=== PATIENT | male | born 1980 | race Hispanic/Latino ===

== ENCOUNTER 2018-04-01 00:18 | Emergency (ER) | payer SELFPAY ==
--- NOTE | 2018-04-01 01:59 | ER ---
Nurse's Notes [facility] Name: Jhonny Pompa Age: 37 yrs Sex: Male : 1980 Arrival Date: 04/01/2018 Time: 00:20 Bed 18 Private MD: Gabriel Noriega T Diagnosis: Acute upper respiratory infection, unspecified Presentation: 04/01 00:29 Presenting complaint: Patient states: Pt reports he has been having a sore throat, ea fever, congestion and productive cough for about 1 week. Transition of care: patient was not received from another setting of care. Onset of symptoms was April 01, 2018. Risk Assessment: Do you want to hurt yourself or someone else? Patient reports no desire to harm self or others. Initial Sepsis Screen: Does the patient meet any 2 criteria? No. Patient's initial sepsis screen is negative. Does the patient have a suspected source of infection? Yes: Productive cough/pneumonia. Care prior to arrival: None. 00:29 Method Of Arrival: Ambulatory ea 00:29 Acuity: DONNELL 4 ea Triage Assessment: 00:37 General: Appears in no apparent distress. Behavior is calm, cooperative, appropriate ea for age. Pain: Denies pain. Neuro: Level of Consciousness is awake, alert, obeys commands, Oriented to person, place, time, situation. Respiratory: Airway is patent Respiratory effort is even, unlabored, Respiratory pattern is regular, symmetrical. Derm: Skin is pink, warm \T\ dry. Historical: - Allergies: 00:33 Tylenol; ea 00:33 meloxicam; ea - Home Meds: 00:33 Valium Oral [Active]; Tramadol Oral [Active]; Cymbalta Oral [Active]; ea - PMHx: 00:33 Anxiety; Depression; ea - PSHx: 00:33 None; ea - Immunization history:: Adult Immunizations up to date. - Social history:: Smoking status: Patient/guardian denies using tobacco. - Ebola Screening: : No symptoms or risks identified at this time. Screenin:36 Abuse screen: Denies threats or abuse. Nutritional screening: No deficits noted. ea Tuberculosis screening: No symptoms or risk factors identified. Fall Risk None identified. Assessment: 00:40 Reassessment: Patient appears in no apparent distress at this time. No changes from ak1 previously documented assessment. see triage assessment. Respiratory: Airway is patent Breath sounds are clear. EENT: Throat is clear. 01:35 Reassessment: Patient appears in no apparent distress at this time. No changes from ak1 previously documented assessment. Patient and/or family updated on plan of care and expected duration. Pain level reassessed. Patient is alert, oriented x 3, equal unlabored respirations, skin warm/dry/pink. 02:10 Reassessment: Patient appears in no apparent distress at this time. No changes from ak1 previously documented assessment. Patient and/or family updated on plan of care and expected duration. Pain level reassessed. Patient is alert, oriented x 3, equal unlabored respirations, skin warm/dry/pink. Vital Signs: 00:34 BP 122 / 89; Pulse 103; Resp 18; Temp 99(O); Pulse Ox 95% ; Weight 65.77 kg; Height 6 ea ft. (182.88 cm); 02:17 BP 127 / 90; Pulse 87; Resp 16; Temp 98.9; Pulse Ox 96% on R/A; Pain 0/10; ak1 00:34 Body Mass Index 19.67 (65.77 kg, 182.88 cm) ea ED Course: 00:20 Patient arrived in ED. es 00:21 Gabriel Noriega MD is Private Physician. es 00:22 [facility]C [facility] kb 00:22 Gino Kate MD is Attending Physician. kb 00:29 Sera Bailey, APZ is Primary Nurse. ea 00:32 Triage completed. ea 00:36 Patient has correct armband on for positive identification. Bed in low position. Call ea light in reach. 00:38 Arm band placed on right wrist. Patient placed in an exam room, on a stretcher, on ea pulse oximetry. 00:58 Patient moved to radiology via wheelchair. kw 00:58 X-ray completed. Patient tolerated procedure well. kw 00:59 Patient moved back from radiology. kw 00:59 XRAY Chest Pa And Lat (2 Views) In Process Unspecified. EDMS 02:12 No provider procedures requiring assistance completed. Patient did not have IV access ak1 during this emergency room visit. Administered Medications: No medications were administered Outcome: 01:59 Discharge ordered by . kb 02:12 Discharged to home ambulatory, with family. ak1 02:12 Condition: good 02:12 Discharge instructions given to patient, family, Instructed on discharge instructions, follow up and referral plans. Demonstrated understanding of instructions, follow-up care. 02:17 Patient left the ED. ak1 Signatures: Dispatcher [employer] EDRin James, NARROW GAUGE BRAKEMAN-C NARROW GAUGE BRAKEMAN-Ckb Dot Pearson Kimberlee kw Krenek, Amber RN RN ak1 Sera Bailey RN RN roberto carlos Corrections: (The following items were deleted from the chart) 02:14 02:12 EENT: Throat is clear ak1 ak1 02:14 02:12 Respiratory: Airway is patent Breath sounds are clear ak1 ak1 02:14 02:13 Reassessment: Patient appears in no apparent distress at this time. No changes ak1 from previously documented assessment. see triage assessment. ak1
--- NOTE | 2018-04-01 01:59 | EDPHYS ---
Physician Documentation [facility] Name: Jhonny Pompa Age: 37 yrs Sex: Male : 1980 Arrival Date: 04/01/2018 Time: 00:20 Bed 18 Private MD: Gabriel Noriega T ED Physician Gino Kate HPI: 04/01 01:14 This 37 yrs old Male presents to ER via Ambulatory with complaints of Chest kb Congestion, Sore Throat, Cough. 01:14 The patient or guardian reports cough, that is intermittent, described as moderate, kb with no sputum, flu symptoms. Onset: The symptoms/episode began/occurred last week. Severity of symptoms: At their worst the symptoms were moderate, in the emergency department the symptoms are unchanged. Modifying factors: The symptoms are alleviated by nothing, the symptoms are aggravated by nothing. Associated signs and symptoms: Pertinent positives: earache, fever, rhinorrhea, sore throat, Pertinent negatives: chest pain, diarrhea, nausea, vomiting. The patient has not experienced similar symptoms in the past. The patient has not recently seen a physician. Historical: - Allergies: 00:33 Tylenol; ea 00:33 meloxicam; ea - Home Meds: 00:33 Valium Oral [Active]; Tramadol Oral [Active]; Cymbalta Oral [Active]; ea - PMHx: 00:33 Anxiety; Depression; ea - PSHx: 00:33 None; ea - Immunization history:: Adult Immunizations up to date. - Social history:: Smoking status: Patient/guardian denies using tobacco. - Ebola Screening: : No symptoms or risks identified at this time. ROS: 01:13 Cardiovascular: Negative for chest pain, palpitations, and edema, Abdomen/GI: Negative kb for abdominal pain, nausea, vomiting, diarrhea, and constipation, Back: Negative for injury and pain, MS/Extremity: Negative for injury and deformity, Skin: Negative for injury, rash, and discoloration, Neuro: Negative for headache, weakness, numbness, tingling, and seizure. 01:13 Constitutional: Positive for body aches, chills, fever, malaise, Negative for fatigue, poor PO intake, weight loss. 01:13 ENT: Positive for rhinorrhea, sinus congestion, sore throat. 01:13 Respiratory: Positive for cough, Negative for dyspnea on exertion, hemoptysis, orthopnea, pleurisy, shortness of breath, sputum production, wheezing. Exam: 01:14 Constitutional: This is a well developed, well nourished patient who is awake, alert, kb and in no acute distress. Head/Face: Normocephalic, atraumatic. ENT: Nares patent. No nasal discharge, no septal abnormalities noted. Tympanic membranes are normal and external auditory canals are clear. Oropharynx with no redness, swelling, or masses, exudates, or evidence of obstruction, uvula midline. Mucous membranes moist. Neck: Trachea midline, no thyromegaly or masses palpated, and no cervical lymphadenopathy. Supple, full range of motion without nuchal rigidity, or vertebral point tenderness. No Meningismus. Chest/axilla: Normal chest wall appearance and motion. Nontender with no deformity. No lesions are appreciated. Cardiovascular: Regular rate and rhythm with a normal S1 and S2. No gallops, murmurs, or rubs. Normal PMI, no JVD. No pulse deficits. Respiratory: Lungs have equal breath sounds bilaterally, clear to auscultation and percussion. No rales, rhonchi or wheezes noted. No increased work of breathing, no retractions or nasal flaring. Abdomen/GI: Soft, non-tender, with normal bowel sounds. No distension or tympany. No guarding or rebound. No evidence of tenderness throughout. Skin: Warm, dry with normal turgor. Normal color with no rashes, no lesions, and no evidence of cellulitis. MS/ Extremity: Pulses equal, no cyanosis. Neurovascular intact. Full, normal range of motion. Neuro: Awake and alert, GCS 15, oriented to person, place, time, and situation. Cranial nerves II-XII grossly intact. Motor strength 5/5 in all extremities. Sensory grossly intact. Cerebellar exam normal. Normal gait. Vital Signs: 00:34 BP 122 / 89; Pulse 103; Resp 18; Temp 99(O); Pulse Ox 95% ; Weight 65.77 kg; Height 6 ea ft. (182.88 cm); 02:17 BP 127 / 90; Pulse 87; Resp 16; Temp 98.9; Pulse Ox 96% on R/A; Pain 0/10; ak1 00:34 Body Mass Index 19.67 (65.77 kg, 182.88 cm) ea MDM: 00:25 Patient medically screened. kb 01:13 Data reviewed: vital signs, nurses notes. Data interpreted: Pulse oximetry: on room air kb is 95 %. Interpretation: normal. 01:59 Counseling: I had a detailed discussion with the patient and/or guardian regarding: the kb historical points, exam findings, and any diagnostic results supporting the discharge/admit diagnosis, lab results, radiology results, the need for outpatient follow up, a family practitioner, to return to the emergency department if symptoms worsen or persist or if there are any questions or concerns that arise at home. 04/01 00:31 Order name: Flu; Complete Time: 01:57 kb 04/01 00:31 Order name: Strep; Complete Time: 01:56 kb 04/01 00:39 Order name: XRAY Chest Pa And Lat (2 Views) ak1 04/01 01:58 Order name: Throat Culture EDMS Administered Medications: No medications were administered Disposition: 07:49 Co-signature as Attending Physician, Gino Kate MD I agree with the assessment and [facility] plan of care. Disposition: 04/01/18 01:59 Discharged to Home. Impression: Acute upper respiratory infection, unspecified. - Condition is Stable. - Discharge Instructions: Upper Respiratory Infection, Adult, [id number]. - Medication Reconciliation Form, Thank You Letter, Antibiotic Education, Prescription Opioid Use form. - Follow up: Private Physician; When: 2 - 3 days; Reason: Recheck today's complaints, Continuance of care, Re-evaluation by your physician. Follow up: Emergency Department; When: As needed; Reason: Worsening of condition. Signatures: Dispatcher [employer] EDLA Rin Greenberg, Gino Roth MD MD cha Krenek, Amber, RN RN ak1 Sera Baiely RN RN ea Corrections: (The following items were deleted from the chart) 02:17 01:59 04/01/2018 01:59 Discharged to Home. Impression: Acute upper respiratory ak1 infection, unspecified. Condition is Stable. Forms are Medication Reconciliation Form, Thank You Letter, Antibiotic Education, Prescription Opioid Use. Follow up: Private Physician; When: 2 - 3 days; Reason: Recheck today's complaints, Continuance of care, Re-evaluation by your physician. Follow up: Emergency Department; When: As needed; Reason: Worsening of condition. kb
--- NOTE | 2018-04-01 06:10 | RAD REPORT ---
EXAM DESCRIPTION: RAD - Chest Pa And Lat (2 Views) - 04/01/2018 1:01 am CLINICAL HISTORY: Fever, congestion, cough COMPARISON: May 2016 TECHNIQUE: PA and lateral views of the chest were obtained. FINDINGS: The lungs are clear of focal infiltrate, failure or mass. Hilar regions are similar to com parison. Patient has a baseline prominence of the interstitial markings. Heart size is normal and c entral vasculature is within normal limits. No pleural effusion or pneumothorax seen. No acute bony finding noted. No aortic abnormality. IMPRESSION: No acute cardiopulmonary process. No significant change from comparison.
== END 2018-04-01 02:17 | disposition home or self-care (01) ==
LOC: ER 00:18
DX: J06.9 Acute upper respiratory infection, unspecified (principal); F41.9 Anxiety disorder, unspecified; F32.9 Major depressive disorder, single episode, unspecified; Z88.6 Allergy status to analgesic agent; Z88.8 Allergy status to other drugs, medicaments and biological substances
CPT/HCPCS: 71046; 87070; 87081; 87804; 99283

== ENCOUNTER 2021-03-02 14:57 | Emergency (ER) | payer SELFPAY ==
[2021-03-02] MEDS ORDERED: LIDOCAINE 4% PATCH ONE (17:50)
--- NOTE | 2021-03-02 18:22 | RAD REPORT ---
EXAM DESCRIPTION: RAD - Lumbar Spine 3 Views - 03/02/2021 6:04 pm CLINICAL HISTORY: PAIN COMPARISON: LUMBAR SPINE 3 VIEWS dated 03/06/2015 FINDINGS: No acute fracture. No malalignment. No significant focal degenerative changes. IMPRESSION: No acute osseous abnormality involving the lumbar spine.
--- NOTE | 2021-03-02 18:23 | RAD REPORT ---
EXAM DESCRIPTION: RAD - Hip Right 2 View - 03/02/2021 6:04 pm CLINICAL HISTORY: PAIN COMPARISON: No comparisons FINDINGS: No acute fracture. No malalignment. Mild right acetabular degenerative changes. IMPRESSION: No acute osseous abnormality involving the right hip.
--- NOTE | 2021-03-02 18:41 | EDPHYS ---
Physician Documentation [facility] Name: Jhonny Pompa Age: 40 yrs Sex: Male : 1980 Arrival Date: 03/02/2021 Time: 14:59 Bed 10 Private MD: ED Physician Joe Parekh HPI: 03/02 18:00 This 40 yrs old Male presents to ER via Ambulatory with complaints of Hip Pain.cp 18:00 The patient or guardian reports pain. cp 18:00 The complaints affect the right hip and right buttock and right leg. Onset: The cp symptoms/episode began/occurred for years. Associated signs and symptoms: Pertinent negatives: abdominal pain, chest pain, dysuria, fever, incontinence, weakness, saddle anesthesia. Severity of symptoms: in the emergency department the symptoms are unchanged, despite home interventions. Patient reports pain to right buttock that radiates to right hip and right leg for years. Patient prescribed pain medications but reports they do not control pain and that he ran out of meds. Patient denies injury. Historical: - Allergies: 15:14 meloxicam; ss 15:14 Tylenol; ss - PMHx: 15:14 Anxiety; Depression; ss - Immunization history:: Client reports having NOT received the Covid vaccine. - Social history:: Smoking status: Patient denies any tobacco usage or history of. ROS: 18:05 Constitutional: Negative for body aches, chills, fever, poor PO intake. cp 18:05 Eyes: Negative for injury, pain, redness, and discharge. cp 18:05 Neck: Negative for pain with movement, pain at rest, stiffness. 18:05 Cardiovascular: Negative for chest pain. 18:05 Respiratory: Negative for cough, shortness of breath, wheezing. 18:05 Abdomen/GI: Negative for abdominal pain, nausea, vomiting, and diarrhea, constipation, bowel incontinence. 18:05 Back: Negative for pain at rest, pain with movement. 18:05 : Negative for urinary symptoms, difficulty urinating, bladder incontinence, testicular pain 18:05 MS/extremity: Positive for pain, of the right leg and right hip, Negative for injury or acute deformity, decreased range of motion, paresthesias. 18:05 Neuro: Negative for numbness, weakness. 18:05 All other systems are negative. Exam: 18:10 Constitutional: The patient appears in no acute distress, alert, awake, non-toxic, well cp developed, well nourished. 18:10 Head/Face: Normocephalic, atraumatic. cp 18:10 Neck: ROM/movement: is normal, is supple, without pain, no range of motions limitations. 18:10 Chest/axilla: Inspection: normal. 18:10 Cardiovascular: Rate: tachycardic. 18:10 Respiratory: the patient does not display signs of respiratory distress, Respirations: normal, no use of accessory muscles, no retractions, labored breathing, is not present. 18:10 Abdomen/GI: Inspection: abdomen appears normal, Palpation: abdomen is soft and non-tender, in all quadrants. 18:10 Back: vertebral tenderness, is not appreciated, Straight leg raises: of both lower extremities does not illicit pain. 18:10 Musculoskeletal/extremity: Extremities: grossly normal except: noted in the right buttock and right hip and right leg: pain, There is no evidence of decreased ROM, deformity, swelling, ROM: full active range of motion, in the right leg, Perfusion: the extremity is normally perfused throughout, the right leg Sensation intact. 18:10 Neuro: Motor: moves all fours, strength is normal, Sensation: is normal, Gait: is steady, at a normal pace, without difficulty, Deep tendon reflexes are 2+ (normal) in the right patellar, right Achilles, left patellar and left Achilles. Vital Signs: 15:15 Pulse 105; Resp 16; Temp 98.6(TE); Pulse Ox 100% ; Weight 70.76 kg; Height 6 ft. 0 in. ss (182.88 cm); Pain 8/10; 15:16 BP 126 / 82; ss 15:15 Body Mass Index 21.16 (70.76 kg, 182.88 cm) ss MDM: 17:47 Patient medically screened. cp 18:00 Differential diagnosis: hip fracture, bursitis, strain, DVT, sciatica, bulging disc. cp 18:40 Data reviewed: vital signs, nurses notes, radiologic studies, plain films. cp 03/02 17:47 Order name: XRAY Lumbar Spine (3 Views) cp 03/02 17:47 Order name: XRAY Hip RIGHT 2 view cp Administered Medications: 17:52 Drug: Lidoderm Patch 5 % (700 mg/patch) 1 patches {Note: 4% lido patch available. OK ss per LILA Christian.} Route: Topical; Site: affected area; Disposition Summary: 03/02/21 18:41 Discharge Ordered Location: Home cp Problem: chronic cp Symptoms: have improved cp Condition: Stable cp Diagnosis - Sciatica, right side cp Followup: cp - With: Geronimo Yoder DO - When: 2 - 3 days - Reason: Recheck today's complaints Discharge Instructions: - Discharge Summary Sheet cp - Sciatica cp - Back Exercises cp Forms: - Work release form ss - Medication Reconciliation Form cp - Thank You Letter cp - Antibiotic Education cp - Prescription Opioid Use cp Prescriptions: - Baclofen 10 mg Oral Tablet - take 1 tablet by ORAL route 3 times per day; 20 tablet; Refills: 0, Product cp Selection Permitted - Medrol (Carlitos) 4 mg Oral Tablets, Dose Pack - take 1 tablet by ORAL route as directed - follow package instructions; 1 cp packet; Refills: 0, Product Selection Permitted Addendum: 03/05/2021 11:22 Co-signature as Attending Physician, Joe Parekh MD I agree with the assessment and k dr plan of care. Signatures: Dispatcher [employer] EDJoe Arboleda MD MD kdr Shannon Davies RN RN Gino Osei PA PA cp
--- NOTE | 2021-03-02 18:41 | ER ---
Nurse's Notes [facility] Name: Jhonny Pompa Age: 40 yrs Sex: Male : 1980 Arrival Date: 03/02/2021 Time: 14:59 Bed 10 Private MD: Diagnosis: Sciatica, right side Presentation: 03/02 15:14 Chief complaint: Patient states: R hip pain that began x "a couple years" ago. Pt ss reports that he was given medication by his PCP, but it's not helping now. Coronavirus screen: Client denies travel out of the [place] in the last 14 days. Ebola Screen: Patient denies exposure to infectious person. Patient denies travel to an Ebola-affected area in the 21 days before illness onset. Initial Sepsis Screen: Does the patient meet any 2 criteria? No. Patient's initial sepsis screen is negative. Does the patient have a suspected source of infection? No. Patient's initial sepsis screen is negative. Risk Assessment: Do you want to hurt yourself or someone else? Patient reports no desire to harm self or others. Onset of symptoms is unknown. 15:14 Method Of Arrival: Ambulatory ss 15:14 Acuity: DONNELL 4 ss Historical: - Allergies: 15:14 meloxicam; ss 15:14 Tylenol; ss - PMHx: 15:14 Anxiety; Depression; ss - Immunization history:: Client reports having NOT received the Covid vaccine. - Social history:: Smoking status: Patient denies any tobacco usage or history of. Screenin:15 Abuse screen: Denies threats or abuse. Denies injuries from another. Nutritional ss screening: No deficits noted. Tuberculosis screening: Never had TB. Fall Risk None identified. Assessment: 15:15 General: Appears in no apparent distress. comfortable, Behavior is calm, cooperative. ss Pain: Complains of pain in R hip/ buttock Pain currently is 8 out of 10 on a pain scale. Pain began years ago. Is continuous. Neuro: Level of Consciousness is awake, alert, obeys commands, Oriented to person, place, time, situation. Cardiovascular: Capillary refill < 3 seconds is brisk in bilateral fingers. Respiratory: Airway is patent Respiratory effort is even, unlabored, Respiratory pattern is regular, symmetrical. GI: No signs and/or symptoms were reported involving the gastrointestinal system. EENT: Nares are clear Oral mucosa is moist. Derm: Skin is intact, is healthy with good turgor, Skin is dry, Skin is pink, warm \\T\\ dry. normal. 18:00 Reassessment: Patient appears in no apparent distress at this time. Patient and/or ss family updated on plan of care and expected duration. Pain level reassessed. Patient is alert, oriented x 3, equal unlabored respirations, skin warm/dry/pink. 18:37 Reassessment: Patient appears in no apparent distress at this time. No changes from previously documented assessment. awaiting disposition. Vital Signs: 15:15 Pulse 105; Resp 16; Temp 98.6(TE); Pulse Ox 100% ; Weight 70.76 kg; Height 6 ft. 0 in. ss (182.88 cm); Pain 8/10; 15:16 BP 126 / 82; ss 15:15 Body Mass Index 21.16 (70.76 kg, 182.88 cm) ED Course: 14:59 Patient arrived in ED. am2 15:14 Triage completed. ss 15:15 Arm band placed on right wrist. ss 15:15 Patient has correct armband on for positive identification. Bed in low position. Call ss light in reach. 17:42 Gino Yi PA is PHCP. cp 17:42 Joe Parekh MD is Attending Physician. cp 17:49 Shannon Davies, PAZ is Primary Nurse. ss 18:04 XRAY Lumbar Spine (3 Views) In Process Unspecified. EDMS 18:04 XRAY Hip RIGHT 2 view In Process Unspecified. EDMS 18:40 Geronimo Yoder DO is Referral Physician. cp 18:57 No provider procedures requiring assistance completed. Patient did not have IV access ss during this emergency room visit. Administered Medications: 17:52 Drug: Lidoderm Patch 5 % (700 mg/patch) 1 patches {Note: 4% lido patch available. OK ss per LILA Christian.} Route: Topical; Site: affected area; Outcome: 18:41 Discharge ordered by . cp 18:57 Discharged to home ambulatory. ss 18:57 Condition: good 18:57 Discharge instructions given to patient, Instructed on discharge instructions, follow up and referral plans. medication usage, Demonstrated understanding of instructions, follow-up care, Prescriptions given X 2. 18:57 Patient left the ED. ss Signatures: Dispatcher [employer] Shannon Zuniga RN RN ss Gino Yi PA PA cp Moreno, Amanda am2
[2021-03-02 19:03] VITALS: TEMP 98.6; O2SAT 100
[2021-03-02 19:04] VITALS: BP 126/82
== END 2021-03-02 18:57 | disposition home or self-care (01) ==
LOC: ER 14:57
DX: M54.31 Sciatica, right side (principal); Z88.6 Allergy status to analgesic agent
CPT/HCPCS: 72100; 99283

== ENCOUNTER 2022-04-28 16:11 | Emergency (ER) | payer SELFPAY ==
--- OUTSIDE RECORDS SUMMARY | 2022-04-28 16:15 | XMS REPORT | Continuity of Care Document ---
:1980 Author Organization [facility] t Address [address] [place] [address] Care Team Providers Name Role Phone Gabriel Noriega Primary Care Physician KANDY DELAROSA Attending Clinician Unavailable SANJUANITA HERNANDEZ Attending Clinician Unavailable Sanjuanita Musa Attending Clinician June Marie Attending Clinician Doctor Unassigned, [place] Attending Clinician Unavailable Payers Payer Name Policy Type Policy Number Effective Date Expiration Date Deshawn kim [facility] [id number] 2014 2021 SELECT 00:00:00 00:00:00 Problems Condition Condition Condition Status Onset Resolution Last Treating Co mments Source Name Details Category Date Date Treatment Clinician Date No known No known Disease Unive rs active active ity of problems problems [place] [facility] Allergies, Adverse Reactions, Alerts Allergy Allergy Status Severity Reaction(s) Onset Inactive Treating Comm ents Source Name Type Date Date Clinician Acetamin Propensi Active Unknown - Burning Un dmitry ophen ty to See comments 4-08 in ity of adverse 00:00: stomach [place] reaction 00 Medical s Branch Meloxica Propensi Active Unknown - burnig in Univers m ty to See comments 4-08 stomach ity of adverse 00:00: [place] reaction 00 Medical s Branch Social History Social Habit Start Date Stop Date Quantity Comments Source Exposure to Not sure [facility] SARS-CoV-2 (event) Medica l Branch Tobacco use and 2021-06-29 2021-06-29 Never used [facility] exposure 00:00:00 00:00:00 [facility] Sex Assigned At [birth year] [facility] 00:00:00 00:00:00 Medical Dawn Smoking Status Start Date Stop Date Source Never smoker [facility] Medications Ordered Filled Start Stop Current Ordering Indication Dosage Frequency Signature Comments Components Source Medication Medication Date Date Medication? Clinician (SIG) Name Name DULoxetine Yes 20mg Take 20 mg U nivers 20 mg 08 by mouth ity of capsule 12:36: daily. [place] 48 Medical Branch amoxicillin 2021- No [id number] 1{tbl} Take 1 Univers -clavulanat 06-29 tablet by it y of e 00:00: 04:59 mouth 2 [place] (AUGMENTIN) 00 :00 (two) Medical 875-125 mg times Branch per tablet daily for 10 days. Vital Signs Vital Name Observation Time Observation Value Comments Source Systolic blood 2021-06-29 17:11:00 129 mm[Hg] [facility]iver [facility] Diastolic blood 2021-06-29 17:11:00 89 mm[Hg] [facility] Heart rate 2021-06-29 17:11:00 97 /min [facility] Body temperature 2021-06-29 17:11:00 36.78 Jaimee [facility] Respiratory rate 2021-06-29 17:11:00 17 /min [facility] Body height 2021-06-29 17:11:00 182.9 cm [facility] Body weight 2021-06-29 17:11:00 66.877 kg [facility] BMI 2021-06-29 17:11:00 20.00 kg/m2 [facility] Oxygen saturation in 2021-06-29 17:11:00 98 /min [facility] Arterial blood by [facility] Pulse oximetry Dawn Procedures Procedure Date / Time Performed Performing Clinician Anel mike POCT URINALYSIS 2021-06-29 17:20:00 Sanjuanita Hernandez [facility] Encounters Start End Encounter Admission Attending Care Care Encounter Source Date/Time Date/Time Type Type Clinicians Facility Department ID 2022-04-26 2022-04-26 Outpatient SFA ALFREDO [id number] [place] 13:16:28 13:16:28 [id number] Zen 2021-07-06 2021-07-06 Outpatient Whitney DELAROSA [facility] [id number] Univers 13:00:00 13:00:00 KANDY rojas of [facility] 2021-06-29 2021-06-29 Outpatient R DAVID [facility] [id number] Univers 13:30:00 13:30:00 SANJUANITA rojas o f [facility] 2021-06-29 2021-06-29 Urgent Sanjuanita Hernandez [facility] [id number] Univers 12:40:00 12:58:01 Care Octavio [facility] [id number] ity of [place] [id number] Coleman as CHRISTIANO?BLEA [phone] Mn dical [address] MEDICAL OFFICE BUILDING 2021-06-29 2021-06-29 Orders Doctor BELTRAN [id number] Univers 00:00:00 00:00:00 Only Unassigned, ISSA [id number] ity of [place] [facility] [id number] [place] as [phone] [address] Results Test Description Test Time Test Comments Results Result Comments Source POCT URINALYSIS W SPECIFIC GRAVITY 2021-06-29 17:26:00 Test Item Value Reference Range Interpretation Comme nts POCT U SP GRAV (test code = 1.015 mg/dl 1.005-1.025 3255) POCT PH U (test code = 3254) 6 mg/dl 5-8 POCT U LEUK EST (test code = neg Negative - Negative 3263) POCT U NIT (test code = 3262) neg Negative - Negative POCT U PROT (test code = 3259) neg Negative - Negative POCT U GLU (test code = 3256) neg Negative - Negative POCT U KETONE (test code = neg Negative - Negative 3258) POCT U UROBILI (test code = norm 0.2-1 3260) POCT U BILI (test code = 3261) neg Negative - Negative POCT U BLD (test code = 3257) neg Negative - Negative POCT U COLOR (test code = 3266) dark yellow POCT U APPEAR (test code = clear 3267) MINGO (test code = MINGO) accurate development and interpretation of all internal controls Lab Interpretation (test code = Normal 32936-8) [facility]
[2022-04-28] MEDS ORDERED: ONDANSETRON 4 MG/2 ML VIAL ONE (18:04)
[2022-04-28] MEDS ORDERED: FENTANYL CITR 100 MCG/2 ML ONE (18:04)
[2022-04-28 18:05] LABS: Hematocrit 41.9 % (39.6-49.0)
[2022-04-28 18:12] LABS: Lymphocytes % 35.1 % (15.3-44.8); MCV 85.8 fL (80-100); MPV 6.6 fL (7.6-11.3); RBC Red Blood Cell Count 4.88 M/uL (4.33-5.43)
[2022-04-28 18:22] LABS: Albumin 3.7 g/dL (3.4-5.0); Bilirubin Total 0.2 mg/dL (0.2-1.0); Potassium 3.7 mmol/L (3.5-5.1); Protein, Total 8.3 g/dL (6.4-8.2)
--- NOTE | 2022-04-28 18:29 | RAD REPORT ---
EXAM DESCRIPTION: CT - Stone Protocol - 04/28/2022 6:09 pm CLINICAL HISTORY: Abdominal pain. Left flank pain COMPARISON: 2015 TECHNIQUE: Computed axial tomography of the abdomen pelvis was obtained without oral or IV contrast. Lack of IV and oral contrast limits evaluation of solid organs, appendix, bowel, and vessels. Neville l reformatted images were obtained and reviewed. All CT scans are performed using dose optimization technique as appropriate and may include automated exposure control or mA/KV adjustment according to patient size. FINDINGS: Two small left renal calculi. No hydronephrosis. Right renal calculus is not seen. No ureteral calculus. No bladder calculus. The liver, spleen, pancreas and adrenals appear grossly normal There is no evidence of diverticulitis. Short segment narrowing the sigmoid colon. The appendix appears normal. Small umbilical hernia IMPRESSION: Small nonobstructing left renal calculi. Short segment narrowing sigmoid colon most likely is secondary to spasm. However, as a mass can have a similar appearance. Either follow-up imaging or sigmoidoscopy recommended
[2022-04-28] MEDS ORDERED: NA CHLORIDE 0.9% 2,000 ML ONE (18:38)
[2022-04-28 19:28] LABS: Urine Blood Negative (Negative); Urine Glucose Negative (Negative); Urine Protein Negative (Negative); Urine Specific Gravity 1.025 (1.005-1.030); Urine pH 5.5 (5.0-7.0)
[2022-04-28 19:35] LABS: Urine Bacteria None Seen /HPF (<20); Urine Mucus Slight /HPF (None Seen); Urine RBC None Seen /HPF (None Seen)
[2022-04-28] MEDS ORDERED: CYCLOBENZAPRINE 10 MG TAB ONE (20:20)
[2022-04-28] MEDS ORDERED: LIDOCAINE 4% PATCH ONE (20:21)
[2022-04-28 20:50] LABS: SARS-COV-2 RT PCR NEGATIVE (NEGATIVE)
--- NOTE | 2022-04-28 21:05 | ER ---
Nurse's Notes [facility] Name: Jhonny Pompa Age: 41 yrs Sex: Male : 1980 Arrival Date: 04/28/2022 Time: 16:12 Bed DIS1 Private MD: Gabriel Noriega T Diagnosis: Dorsalgia, unspecified;Acute pharyngitis, unspecified Presentation: 04/28 16:25 Chief complaint: Patient states: L lower back pain for 2 days. Body aches, legs weak, ll1 slight dysuria started today. States he had the flu 2 weeks ago. Coronavirus screen: Vaccine status: Patient reports being unvaccinated. Client denies travel out of the [place] in the last 14 days. Ebola Screen: Patient denies travel to an Ebola-affected area in the 21 days before illness onset. Initial Sepsis Screen: Does the patient meet any 2 criteria? No. Patient's initial sepsis screen is negative. Does the patient have a suspected source of infection? No. Patient's initial sepsis screen is negative. Risk Assessment: Do you want to hurt yourself or someone else? Patient reports no desire to harm self or others. Onset of symptoms was April 27, 2022. 16:25 Method Of Arrival: Ambulatory ll1 16:25 Acuity: DONNELL 3 ll1 Historical: - Allergies: 16:27 meloxicam; ll1 16:27 Tylenol; ll1 - PMHx: 16:27 Anxiety; Depression; ll1 - PSHx: 16:27 None; ll1 - Immunization history:: Client reports having NOT received the Covid vaccine. - Social history:: Smoking status: Patient denies any tobacco usage or history of. Assessment: 21:27 Reassessment: Patient is alert, oriented x 3, equal unlabored respirations, skin bb warm/dry/pink. pt seen by this RN at discharge pt verbalized understanding of and agrees to plan of care discharge instructions given pt ambulated with steady gait to exit. Vital Signs: 16:25 BP 136 / 100; Pulse 98; Resp 18; Temp 98.6; Pulse Ox 98% ; Weight 73.48 kg; Height 6 ll1 ft. 1 in. (185.42 cm); Pain 8/10; 21:29 BP 122 / 87; Pulse 89; Resp 16 S; Temp 99.1(TE); Pulse Ox 99% on R/A; Pain 4/10; bb 16:25 Body Mass Index 21.37 (73.48 kg, 185.42 cm) ll1 ED Course: 16:12 Patient arrived in ED. am2 16:13 Gabriel Noriega MD is Private Physician. am2 16:27 Triage completed. ll1 16:27 Arm band placed on. ll1 17:14 Gino Yi PA is PHCP. cp 17:14 Joe Parekh MD is Attending Physician. cp 18:03 Laury Gonzalez, PAZ is Primary Nurse. iw 18:11 CT Stone Protocol In Process Unspecified. EDMS 19:29 Urine Microscopic Only Sent. zm 21:29 Patient has correct armband on for positive identification. bb 21:29 No provider procedures requiring assistance completed. IV discontinued, intact, bb bleeding controlled, No redness/swelling at site. Pressure dressing applied. Administered Medications: 18:03 Drug: fentaNYL (PF) 25 mcg Route: IVP; Site: left antecubital; iw 20:22 Follow up: Response: No adverse reaction; RASS: Alert and Calm (0) kr3 18:45 Drug: NS 0.9% 1000 ml Route: IV; Rate: 1 bolus; Site: left antecubital; iw 20:23 Follow up: Response: No adverse reaction; IV Status: Completed infusion; IV Intake: kr3 1000ml 18:45 Drug: NS 0.9% 1000 ml Route: IV; Rate: 1 bolus; Site: left antecubital; iw 20:22 Follow up: IV Status: Completed infusion kr3 20:22 Follow up: Response: No adverse reaction; IV Intake: 1000ml kr3 20:21 Drug: Lidoderm Patch 5 % (700 mg/patch) 1 patches {Note: left side mid back.} Route: kr3 Topical; Site: affected area; 20:22 Drug: Flexeril (cyclobenzaprine) 10 mg Route: PO; kr3 Medication: 21:29 VIS not applicable for this client. bb Intake: 20:22 IV: 1000ml; Total: 1000ml. kr3 20:23 IV: 1000ml; Total: 2000ml. kr3 Outcome: 21:04 Discharge ordered by . cp 21:29 Discharged to home ambulatory. bb 21:29 Condition: stable 21:29 Discharge instructions given to patient, Instructed on discharge instructions, follow up and referral plans. medication usage, Demonstrated understanding of instructions, follow-up care, medications, Prescriptions given X 2. 21:31 Patient left the ED. bb Signatures: Dispatcher [employer] EDMS Tia Perry RN RN Laury Christina RN RN Gino Alexandre PA PA cp Moreno, Amanda am2 Lewis, Lynsay, RN RN ll1 Dedra Wahl Kelley, RN RN kr3
--- NOTE | 2022-04-28 21:05 | EDPHYS ---
Physician Documentation [facility] Name: Jhonny Pompa Age: 41 yrs Sex: Male : 1980 Arrival Date: 04/28/2022 Time: 16:12 Bed DIS1 Private MD: Gabriel Noriega T ED Physician Joe Parekh HPI: 04/28 17:40 This 41 yrs old Male presents to ER via Ambulatory with complaints of Fever, cp Sore Throat, bodyaches, Low Back Pain. 17:40 The patient presents with pain that is acute, with no known mechanism of injury. cp 17:40 The symptoms are located in the left low back. Onset: The symptoms/episode cp began/occurred 2 day(s) ago. The pain does not radiate. 17:40 Associated signs and symptoms: Pertinent positives: fever, bilateral leg pain, sore cp throat, pain with urination, Pertinent negatives: constipation, headache, incontinence, weakness. The problem was sustained from unknown cause, Patient reports being ill with flu 2 weeks ago. Historical: - Allergies: 16:27 meloxicam; ll1 16:27 Tylenol; ll1 - PMHx: 16:27 Anxiety; Depression; ll1 - PSHx: 16:27 None; ll1 - Immunization history:: Client reports having NOT received the Covid vaccine. - Social history:: Smoking status: Patient denies any tobacco usage or history of. ROS: 17:45 Constitutional: Positive for body aches, Negative for fever. cp 17:45 Eyes: Negative for injury, pain, redness, and discharge. cp 17:45 ENT: Positive for sore throat, Negative for drainage from ear(s), ear pain, sinus congestion, sinus pain, difficulty swallowing, difficulty handling secretions. 17:45 Neck: Negative for pain with movement, pain at rest, stiffness. 17:45 Cardiovascular: Negative for chest pain, palpitations. 17:45 Respiratory: Negative for cough, shortness of breath, wheezing. 17:45 Abdomen/GI: Positive for abdominal pain, of the left side of abdomen, Negative for vomiting, diarrhea, constipation. 17:45 Back: Positive for left side low back pain. 17:45 : Positive for urinary symptoms, Negative for hematuria, testicular pain 17:45 MS/extremity: Positive for bilateral leg pain. 17:45 Neuro: Negative for altered mental status, dizziness, headache, numbness, weakness. 17:45 All other systems are negative. Exam: 17:50 Constitutional: The patient appears in no acute distress, alert, awake, cp non-diaphoretic, non-toxic, well developed, well nourished. 17:50 Head/Face: Normocephalic, atraumatic. cp 17:50 Eyes: Periorbital structures: appear normal, Conjunctiva: normal, no exudate, no injection, Sclera: no appreciated abnormality, Lids and lashes: appear normal, bilaterally. 17:50 ENT: External ear(s): are unremarkable, Ear canal(s): are normal, clear, TM's: are normal, no evidence of bulging, no erythema, Nose: is normal, Mouth: Lips: moist, Oral mucosa: pink and intact, moist, Posterior pharynx: Airway: no evidence of obstruction, patent, Tonsils: no enlargement, no erythema, no exudate, swelling, is not appreciated, erythema, is not appreciated, exudate, is not appreciated. 17:50 Neck: ROM/movement: is normal, is supple, without pain, no range of motions limitations, no meningismus, Lymph nodes: no appreciated lymphadenopathy. 17:50 Chest/axilla: Inspection: normal. 17:50 Cardiovascular: Rate: normal, Rhythm: regular. 17:50 Respiratory: the patient does not display signs of respiratory distress, Respirations: normal, no use of accessory muscles, no retractions, labored breathing, is not present, Breath sounds: are clear throughout, no decreased breath sounds, no stridor, no wheezing. 17:50 Abdomen/GI: Inspection: abdomen appears normal, Bowel sounds: active, all quadrants, Palpation: soft, in all quadrants, mild abdominal tenderness, in the anterior aspect of left lateral abdomen, posterior aspect of left lateral abdomen and left upper quadrant, rebound tenderness, is not appreciated, involuntary guarding, is not appreciated. 17:50 Back: pain, that is moderate, of the left low back and left mid back, ROM is normal. 17:50 Skin: no rash present. 17:50 Neuro: Orientation: to person, place \T\ time. Mentation: is normal, Motor: moves all fours, strength is normal, Sensation: is normal, Gait: is steady, at a normal pace, without difficulty. Vital Signs: 16:25 BP 136 / 100; Pulse 98; Resp 18; Temp 98.6; Pulse Ox 98% ; Weight 73.48 kg; Height 6 ll1 ft. 1 in. (185.42 cm); Pain 8/10; 21:29 BP 122 / 87; Pulse 89; Resp 16 S; Temp 99.1(TE); Pulse Ox 99% on R/A; Pain 4/10; bb 16:25 Body Mass Index 21.37 (73.48 kg, 185.42 cm) ll1 MDM: 17:24 Patient medically screened. cp 18:00 Differential diagnosis: COVID-19, influenza, uti, kidney stone, sepsis, strep throat. cp 21:04 Data reviewed: vital signs, nurses notes, lab test result(s), radiologic studies, CT cp scan. 21:04 Consideration of Admission/Observation Escalation of care including cp admission/observation considered. I considered the following discharge prescriptions or medication management in the emergency department Medications were administered in the Emergency Department. See MAR. Counseling: I had a detailed discussion with the patient and/or guardian regarding: the historical points, exam findings, and any diagnostic results supporting the discharge/admit diagnosis, lab results, radiology results, the need for outpatient follow up, a family practitioner, to return to the emergency department if symptoms worsen or persist or if there are any questions or concerns that arise at home. Response to treatment: the patient's symptoms have markedly improved after treatment, and as a result, I will discharge patient. 04/28 17:33 Order name: CBC with Diff; Complete Time: 19:05 cp 04/28 19:05 Interpretation: Normal except: MPV 6.6. cp 04/28 17:33 Order name: CMP; Complete Time: 19:05 cp 04/28 19:05 Interpretation: TP 8.3; GLOB 4.6; A/G 0.8. cp 04/28 17:33 Order name: Lipase; Complete Time: 19:05 cp 04/28 19:06 Interpretation: Reviewed. cp 04/28 17:33 Order name: Urine Microscopic Only; Complete Time: 19:42 cp 04/28 19:43 Interpretation: Reviewed. cp 04/28 19:28 Order name: Urine Dipstick-Ancillary; Complete Time: 19:42 EDMS 04/28 19:42 Order name: Strep; Complete Time: 20:33 cp 04/28 20:33 Interpretation: Reviewed. cp 04/28 17:33 Order name: CT Stone Protocol; Complete Time: 19:05 cp 04/28 19:06 Interpretation: Report reviewed. cp 04/28 19:42 Order name: COVID-19/FLU A+B; Complete Time: 21:03 cp 04/28 20:21 Order name: Throat Culture EDIL 04/28 17:33 Order name: IV Saline Lock; Complete Time: 17:57 cp 04/28 17:33 Order name: Labs collected and sent; Complete Time: 17:57 cp 04/28 17:33 Order name: Urine Dipstick-Ancillary (obtain specimen); Complete Time: 19:28 cp Administered Medications: 18:03 Drug: fentaNYL (PF) 25 mcg Route: IVP; Site: left antecubital; iw 20:22 Follow up: Response: No adverse reaction; RASS: Alert and Calm (0) kr3 18:45 Drug: NS 0.9% 1000 ml Route: IV; Rate: 1 bolus; Site: left antecubital; iw 20:23 Follow up: Response: No adverse reaction; IV Status: Completed infusion; IV Intake: kr3 1000ml 18:45 Drug: NS 0.9% 1000 ml Route: IV; Rate: 1 bolus; Site: left antecubital; iw 20:22 Follow up: IV Status: Completed infusion kr3 20:22 Follow up: Response: No adverse reaction; IV Intake: 1000ml kr3 20:21 Drug: Lidoderm Patch 5 % (700 mg/patch) 1 patches {Note: left side mid back.} Route: kr3 Topical; Site: affected area; 20:22 Drug: Flexeril (cyclobenzaprine) 10 mg Route: PO; kr3 Disposition Summary: 04/28/22 21:04 Discharge Ordered Location: Home cp Problem: new cp Symptoms: have improved cp Condition: Stable cp Diagnosis - Dorsalgia, unspecified cp - Acute pharyngitis, unspecified cp Followup: cp - With: Private Physician - When: 2 - 3 days - Reason: Recheck today's complaints Discharge Instructions: - Discharge Summary Sheet cp - Acute Back Pain, Adult cp - Pharyngitis cp Forms: - Medication Reconciliation Form cp - Thank You Letter cp - Antibiotic Education cp - Prescription Opioid Use cp - Work release form rv1 Prescriptions: - Lidoderm 5 % Topical adhesive patch,medicated - apply 1 patch by TOPICAL route once daily As needed; 7 patch; Refills: 0, cp Product Selection Permitted - Cyclobenzaprine 10 mg Oral Tablet - take 1 tablet by ORAL route every 8 hours As needed; 20 tablet; Refills: 0, cp Product Selection Permitted Signatures: Dispatcher [employer] Laury Koroma RN RN iw Gino Yi PA PA cp Lewis, Lynsay RN RN ll1 Brenda Heard RN RN kr3
[2022-04-28 21:38] VITALS: BP 122/87; TEMP 99.1; O2SAT 99
== END 2022-04-28 21:31 | disposition home or self-care (01) ==
LOC: ER 16:11
DX: J02.9 Acute pharyngitis, unspecified (principal); M54.9 Dorsalgia, unspecified; R50.9 Fever, unspecified; Z20.822 Contact with and (suspected) exposure to COVID-19
CPT/HCPCS: 0240U; 36415; 74176; 76377; 80053; 81003; 81015; 83690; 85025; 87070; 87081; 96361; 96374; 99284; J2001; J2405; J3010; J7030

== ENCOUNTER 2022-11-24 13:34 | Emergency (ER) | payer OTHER ==
--- OUTSIDE RECORDS SUMMARY | 2022-11-24 13:38 | XMS REPORT | Continuity of Care Document ---
:1980 Author Organization [facility] t Address [address] [facility] [address] [place] [address] Care Team Providers Name Role Phone Gabriel Noriega Primary Care Physician KANDY DELAROSA Attending Clinician Unavailable SANJUANITA HERNANDEZ Attending Clinician Unavailable Sanjuanita Musa Attending Clinician June Marie Attending Clinician Doctor Unassigned, [place] Attending Clinician Unavailable Payers Payer Name Policy Type Policy Number Effective Date Expiration Date Deshawn kim [facility] [id number] 2014 2021 [facility] 00:00:00 00:00:00 Problems Condition Condition Condition Status Onset Resolution Last Treating Co mments Source Name Details Category Date Date Treatment Clinician Date No known No known Disease Unive rs active active ity of problems problems [facility] Allergies, Adverse Reactions, Alerts Allergy Allergy Status Severity Reaction(s) Onset Inactive Treating Comm ents Source Name Type Date Date Clinician Acetamin Propensi Active Unknown - Burning Un dmitry ophen ty to See comments 4-08 in ity of adverse 00:00: stomach [place] reaction 00 Medical [facility] Meloxica Propensi Active Unknown - burnig in Univers m ty to See comments 4-08 stomach ity of adverse 00:00: [place] reaction 00 Medical s [place] Social History Social Habit Start Date Stop Date Quantity Comments Source Exposure to Not sure [facility] SARS-CoV-2 (event) Medica l Branch Tobacco use and 2021-06-29 2021-06-29 Never used [facility] exposure 00:00:00 00:00:00 [facility] Branch Sex Assigned At [birth year] [facility] 00:00:00 00:00:00 Medical Branch Smoking Status Start Date Stop Date Source Never smoker [facility] Medications Ordered Filled Start Stop Current Ordering Indication Dosage Frequency Signature Comments Components Source Medication Medication Date Date Medication? Clinician (SIG) Name Name DULoxetine Yes 20mg Take 20 mg U nivers 20 mg 08 by mouth ity of capsule 12:36: daily. [place] [address] Medical Branch amoxicillin 2021- No [id number] 1{tbl} Take 1 Univers -clavulanat 06-29 tablet by it y of e 00:00: 04:59 mouth 2 [place] (AUGMENTIN) 00 :00 (two) Medical 875-125 mg times Branch per tablet daily for 10 days. Vital Signs Vital Name Observation Time Observation Value Comments Source Systolic blood 2021-06-29 17:11:00 129 mm[Hg] [facility] Diastolic blood 2021-06-29 17:11:00 89 mm[Hg] [facility] Heart rate 2021-06-29 17:11:00 97 /min [facility] acute hospital Body temperature 2021-06-29 17:11:00 36.78 Jaimee [facility] Respiratory rate 2021-06-29 17:11:00 17 /min [facility] Body height 2021-06-29 17:11:00 182.9 cm [facility] acute hospital Body weight 2021-06-29 17:11:00 66.877 kg [facility] acute hospital BMI 2021-06-29 17:11:00 20.00 kg/m2 General acute hospital Oxygen saturation in 2021-06-29 17:11:00 98 /min [facility] Arterial blood by [facility] Pulse oximetry Branch Procedures Procedure Date / Time Performed Performing Clinician Sourc e POCT URINALYSIS 2021-06-29 17:20:[address] [facility] Encounters Start End Encounter Admission Attending Care Care Encounter Source Date/Time Date/Time Type Type Clinicians Facility Department ID 2022-04-26 2022-04-26 Outpatient SFA [facility] [id number] [place] 13:16:28 13:16:28 [id number] F Zen 2021-07-06 2021-07-06 Outpatient R ISAURA [facility] [id number] Univers 13:00:00 13:00:[address] [facility] 2021-06-29 2021-06-29 Outpatient R DAVID [facility] [id number] Univers 13:30:00 13:30:00 SANJUANITA rojas o f [facility] 2021-06-29 2021-06-29 Urgent Kylah Hernandeztany [facility] [id number]. [id number] Univers 12:40:00 12:58:01 [facility] [id number] ity of [place] [id number] Coleman as CHRISTIANO?BLEA [id number] Mn dical [address] MEDICAL OFFICE BUILDING 2021-06-29 2021-06-29 Orders Doctor BELTRAN [id number] Univers 00:00:00 00:00:00 Only Unassigned, ISSA [id number] ity of [place] [facility] [id number] Coleman as [phone] [address] Results Test Description Test Time Test [...] controls Lab Interpretation (test code = Normal 20843-5) [facility]
--- NOTE | 2022-11-24 14:34 | RAD REPORT ---
EXAM DESCRIPTION: RAD - Knee Left 3 View - 11/24/2022 2:14 pm CLINICAL HISTORY: PAIN COMPARISON: No comparisons FINDINGS/IMPRESSION: No acute fracture. No malalignment. Proximal patellar enthesophyte.
--- NOTE | 2022-11-24 14:53 | EDPHYS ---
Physician Documentation [facility] Name: Jhonny Pompa Age: 42 yrs Sex: Male : 1980 Arrival Date: 11/24/2022 Time: 13:34 Bed 12 Private MD: ED Physician Az Pierce HPI: 11/24 17:58 This 42 yrs old Male presents to ER via Ambulatory with complaints of Knee kb Pain. 17:58 The patient presents with pain. The complaints affect the left knee. Context: The kb problem was sustained at home, resulted from an unknown cause, the patient can fully bear weight, the patient is able to ambulate. Onset: The symptoms/episode began/occurred 2 week(s) ago. Modifying factors: The symptoms are alleviated by nothing. the symptoms are aggravated by movement. Associated signs and symptoms: The patient has no apparent associated signs or symptoms. Treatment prior to arrival includes: no previous treatment. Severity of symptoms: At their worst the symptoms were mild, in the emergency department the symptoms are unchanged. The patient has not experienced similar symptoms in the past. The patient has not recently seen a physician. ROS: 17:58 Constitutional: Negative for fever, chills, and weight loss. kb 17:58 MS/extremity: Positive for pain, of the left knee. 17:58 All other systems are negative. Exam: 17:58 Constitutional: This is a well developed, well nourished patient who is awake, alert, kb and in no acute distress. Head/Face: Normocephalic, atraumatic. ENT: Moist Mucous membranes Cardiovascular: Regular rate and rhythm with a normal S1 and S2. No gallops, murmurs, or rubs. No pulse deficits. Respiratory: Respirations even and unlabored. No increased work of breathing. Talking in full sentences Skin: Warm, dry with normal turgor. Normal color. MS/ Extremity: Pulses equal, no cyanosis. Neurovascular intact. Full, normal range of motion. Neuro: Awake and alert, GCS 15, oriented to person, place, time, and situation. Moves all extremities. Normal gait. Vital Signs: 13:52 BP 137 / 98 LA Sitting (auto/reg); Pulse 114 MON; Resp 20 S; Temp 98.3(O); Pulse Ox 97% ds4 on R/A; Weight 73.48 kg; Height 6 ft. 0 in. ; Pain 8/10; 13:52 Body Mass Index 21.97 (73.48 kg, 182.88 cm) ds4 13:52 Pain Scale: Adult ds4 MDM: 13:47 Patient medically screened. kb 17:58 Differential diagnosis: dislocation, closed fracture, contusion, tendonitis, strain. kb Data reviewed: vital signs, nurses notes. Counseling: I had a detailed discussion with the patient and/or guardian regarding the historical points, exam findings, and any diagnostic results supporting the discharge/admit diagnosis, radiology results, the need for outpatient follow up, a orthopedic surgeon, to return to the emergency department if symptoms worsen or persist or if there are any questions or concerns that arise at home. 11/24 13:49 Order name: Knee Left 3 View XRAY; Complete Time: 14:51 kb 11/24 14:52 Order name: Narciso Wrap; Complete Time: 15:05 kb Administered Medications: No medications were administered Disposition Summary: 11/24/22 14:52 Discharge Ordered Location: Home kb Condition: Stable kb Diagnosis - Pain in left knee kb Followup: kb - With: Emergency Department - When: As needed - Reason: Worsening of condition Followup: kb - With: Private Physician - When: 2 - 3 days - Reason: Recheck today's complaints, Continuance of care, Re-evaluation by your physician Discharge Instructions: - Discharge Summary Sheet kb - Musculoskeletal Pain kb - Acute Knee Pain, Adult, Upfe-mg-Fmaw kb Forms: - Medication Reconciliation Form kb - Thank You Letter kb - Antibiotic Education kb - Prescription Opioid Use kb - Patient Portal Instructions kb - Leadership Thank You Letter kb - Work release form iw Signatures: Dispatcher [employer] Rin Barnes, CHARLIE COLE-Yancy
--- NOTE | 2022-11-24 14:53 | ER ---
Nurse's Notes [facility] Name: Jhonny Pompa Age: 42 yrs Sex: Male : 1980 Arrival Date: 11/24/2022 Time: 13:34 Bed 12 Private MD: Diagnosis: Pain in left knee Presentation: 11/24 13:57 Coronavirus screen: At this time, the client does not indicate any symptoms associated iw with coronavirus-19. Ebola Screen: Patient negative for fever greater than or equal to 101.5 degrees Fahrenheit, and additional compatible Ebola Virus Disease symptoms Patient denies exposure to infectious person. Patient denies travel to an Ebola-affected area in the 21 days before illness onset. No symptoms or risks identified at this time. Initial Sepsis Screen: Does the patient meet any 2 criteria? No. Patient's initial sepsis screen is negative. Does the patient have a suspected source of infection? No. Patient's initial sepsis screen is negative. Risk Assessment: Do you want to hurt yourself or someone else? Patient reports no desire to harm self or others. 13:57 Acuity: DONNELL 4 iw 13:57 Method Of Arrival: Ambulatory iw Triage Assessment: 17:00 General: Appears in no apparent distress. iw Screenin:00 [facility] ED Fall Risk Assessment (Adult) Score/Fall Risk Level 0 - 2 = Low Risk. Abuse iw screen: Denies threats or abuse. Denies injuries from another. Nutritional screening: No deficits noted. Tuberculosis screening: No symptoms or risk factors identified. Vital Signs: 13:52 BP 137 / 98 LA Sitting (auto/reg); Pulse 114 MON; Resp 20 S; Temp 98.3(O); Pulse Ox 97% ds4 on R/A; Weight 73.48 kg; Height 6 ft. 0 in. ; Pain 8/10; 13:52 Body Mass Index 21.97 (73.48 kg, 182.88 cm) ds4 13:52 Pain Scale: Adult ds4 ED Course: 13:39 Patient arrived in ED. im 13:39 Rin Greenberg FNP-C is PHCP. kb 13:39 Az Pierce MD is Attending Physician. kb 13:57 Laury Gonzalez, PAZ is Primary Nurse. iw 13:58 Triage completed. iw 14:15 Knee Left 3 View XRAY In Process Unspecified. EDMS 15:05 Narciso wrap to left knee. ds4 15:30 No provider procedures requiring assistance completed. Patient did not have IV access iw during this emergency room visit. Administered Medications: No medications were administered Outcome: 14:52 Discharge ordered by . lindsey 15:36 Discharged to home ambulatory. iw 15:36 Condition: good 15:36 Discharge instructions given to patient, Instructed on discharge instructions, follow up and referral plans. Demonstrated understanding of instructions, follow-up care. 15:37 Patient left the ED. iw Signatures: Dispatcher [employer] EDRin James, RESTAURANT ASSISTANT-C RESTAURANT ASSISTANT-CkLaury Arce, RN RN Gianluca Bowens ds4 Umu Gregorio
[2022-11-24 16:00] VITALS: BP 137/98; TEMP 98.3; O2SAT 97
== END 2022-11-24 15:37 | disposition home or self-care (01) ==
LOC: ER 13:34
DX: M25.562 Pain in left knee (principal)
CPT/HCPCS: 99283

== ENCOUNTER 2023-06-20 22:42 | Emergency (ER) | payer OTHER ==
--- OUTSIDE RECORDS SUMMARY | 2023-06-20 22:45 | XMS REPORT | Continuity of Care Document ---
Author Name Unknown Address [address] [place] [address] [facility] Address [address] [place] [address] Care Team Providers Care Senior Corporate Recruiter Name Role Phone Gabriel Noriega Primary Care Physician KANDY DELAROSA Attending Clinician Unavailable SANJUANITA HERNANDEZ Attending Clinician Unavailabl Sanjuanita Gonzalez Attending Clinician June Marie Attending Clinician Doctor Unassigned, [place] Attending Clinician U navailable Payers Payer Name Policy Type Policy Number Effective Date Expirati on Date Source [facility] [id number] 2014 00:00:00 2021 00:00:00 Problems Condition Name Condition Details Condition Category Status Onset Date Resolution Date Last Treatment Date Treating Clinician Comments Source No known active problems No known active problems Disease [facility] Allergies, Adverse Reactions, Alerts Allergy Name Allergy Type Status Severity Reaction(s) Onset Date Inactive Date Treating Clinician Comments Source Acetamin ophen Propensi ty to adverse reaction s Active Unknown - See comments 06-29 00:00: 00 Burning in stomach [facility] Meloxica m Propensi ty to adverse reaction s Active Unknown - See comments 06-29 00:00: 00 burnig in stomach [facility] Social History Social Habit Start Date Stop Date Quantity Comments Source Exposure to SARS-CoV-2 (event) Not sure [facility] Tobacco use and exposure 2021-06-29 00:00:00 2021-06-29 00:00:00 Never used [facility] Sex Assigned At 1980 00:00:00 1980 00:00:00 [facility] Smoking Status Start Date Stop Date Source Never smoker [facility] Medications Ordered Medication Name Filled Medication Name Start Date Stop Date Current Medication? Ordering Clinician Indication Dosage Frequency Signature (SIG) Comments Components Source DULoxetine 20 mg capsule 06-29 12:36: 48 Yes 20mg Take 20 mg by mouth daily. [facility] amoxicillin -clavulanat e (AUGMENTIN) 875-125 mg per tablet 06-29 00:00: 00 07-10 04:59 :00 No [id number] 1{tbl} Take 1 tablet by mouth 2 (two) times daily for 10 days. [facility] Vital Signs Vital Name Observation Time Observation Value Comments S ource Systolic blood pressure 2021-06-29 17:11:00 129 mm[Hg] [facility] Diastolic blood pressure 2021-06-29 17:11:00 89 mm[Hg] [facility] Heart rate 2021-06-29 17:11:00 97 /min [facility] Body temperature 2021-06-29 17:11:00 36.78 Jaimee [facility] Respiratory rate 2021-06-29 17:11:00 17 /min [facility] Body height 2021-06-29 17:11:00 182.9 cm [facility] Body weight 2021-06-29 17:11:00 66.877 kg [facility] BMI 2021-06-29 17:11:00 20.00 kg/m2 [facility] Oxygen saturation in Arterial blood by Pulse oximetry 2021-06-29 17:11:00 98 /min [facility] Procedures Procedure Date / Time Performed Performing Clinicia n Source POCT URINALYSIS 2021-06-29 17:20:00 Sanjuanita Hernandez [facility] Encounters Start Date/Time End Date/Time Encounter Type Admission Type Attending Clinicians Care Facility Care Department Encounter ID Source 2022-04-26 13:16:28 2022-04-26 13:16:28 Outpatient [facility] [id number] Brown Zaldivar 2021-07-06 13:00:00 2021-07-06 13:00:00 Outpatient [facility] KANDY DELAROSA [facility] [id number] [facility] 2021-06-29 13:30:00 2021-06-29 13:30:00 Outpatient R SANJUANITA HERNANDEZ [facility] [id number] [facility] 2021-06-29 12:40:00 2021-06-29 12:58:01 Urgent Care [facility] [id number] [facility] 2021-06-29 00:00:00 2021-06-29 00:00:00 Orders Only Doctor Unassigned, [place] [facility] [id number] [facility] Results Test Description Test Time Test Comments Results Result Co mments Source [facility]
[2023-06-21] MEDS ORDERED: NA CHLORIDE 0.9% 1,000 ML ONE (00:35)
[2023-06-21 00:55] LABS: Absolute Basophils 0.1 K/uL (0-0.5); Absolute Eosinophils 0.1 K/uL (0-0.5); Absolute Lymphocytes (CBC) 3.3 K/uL (0.7-4.9); Absolute Monocytes 1.2 K/uL (0.1-1.3); Absolute Neutrophil 6.1 K/uL (1.8-8.0); Basophils % 0.9 % (0-1.3); Hematocrit 42.1 % (39.6-49.0); Hemoglobin 14.6 g/dL (13.6-17.9); Lymphocytes % 30.7 % (15.3-44.8); MCH 29.9 pg (27.0-35.0); MCHC 34.6 g/dL (32.0-36.0); MCV 86.3 fL (80-100); MPV 7.4 fL (7.6-11.3); Monocytes % 10.7 % (3.3-12.3); Neutrophils % 56.7 % (41.7-73.7); Nucleated Red Blood Cells % 0.1 % (0-0); Platelets 272 thou/uL (152-406); RBC Red Blood Cell Count 4.88 M/uL (4.33-5.43); Red Cell Distribution Width 13.1 % (12.1-15.2)
[2023-06-21 01:15] LABS: Albumin 3.9 g/dL (3.4-5.0); Albumin/Globulin Ratio 0.9 (1.1-1.8); Anion Gap 9.1 mEq/L (5.0-15.0); Bilirubin Total 0.4 mg/dL (0.2-1.0); Globulin 4.4 g/dL (2.3-3.5); Magnesium 2.2 mg/dL (1.6-2.4); Potassium 3.1 mEq/L (3.5-5.1); Protein, Total 8.3 g/dL (6.4-8.2); Troponin High Sensitivity 3.2 pg/mL (<58.9)
--- NOTE | 2023-06-21 01:41 | ER ---
Nurse's Notes [facility] Name: Jhonny Pompa Age: 42 yrs Sex: Male : 1980 Arrival Date: 06/20/2023 Time: 22:42 Bed 10 Private MD: Diagnosis: Nausea Presentation: 06/19 22:55 Chief complaint: Patient states: I have been having some right upper quadrant and kd3 epigastric discomfort. I feel like i have a lot of low energy when i get up out of bed. I have also had some nausea. I have been having these symptoms for a month. Drinking sweet thing help the symptoms. I take Cymbalta, tramadol, and diazepam but I've been taking them for a long time. Coronavirus screen: Vaccine status:. Coronavirus screen: Vaccine status: Patient reports being unvaccinated. Ebola Screen: No symptoms or risks identified at this time. Initial Sepsis Screen: Does the patient meet any 2 criteria? No. Patient's initial sepsis screen is negative. Does the patient have a suspected source of infection? No. Patient's initial sepsis screen is negative. Risk Assessment: Do you want to hurt yourself or someone else? Patient reports no desire to harm self or others. Onset of symptoms was June 20, 2023. 22:55 Method Of Arrival: Ambulatory kd3 22:55 Acuity: DONNELL 3 kd3 Triage Assessment: 22:57 General: Appears in no apparent distress. Behavior is calm, cooperative. Pain: Denies kd3 pain. Historical: - Allergies: 22:57 meloxicam; kd3 22:57 Tylenol; kd3 - Home Meds: 22:57 Cymbalta Oral [Active]; Valium Oral [Active]; Tramadol Oral [Active]; kd3 - PMHx: 22:57 Depression; Anxiety; kd3 - Immunization history:: Adult Immunizations up to date. - Social history:: Smoking status: Patient denies any tobacco usage or history of. Smoking status: Reported history of juuling and/or vaping. Screenin/30 02:13 [facility] ED Fall Risk Assessment (Adult) History of falling in the last 3 months, ha1 including since admission No falls in past 3 months (0 pts) Confusion or Disorientation No (0 pts) Intoxicated or Sedated No (0 pts) Impaired Gait No (0 pts) Mobility Assist Device Used No (0 pt) Altered Elimination No (0 pt) Score/Fall Risk Level 0 - 2 = Low Risk Oriented to surroundings, Maintained a safe environment, Educated pt \T\ family on fall prevention, incl call for assistance when getting out of bed, Hourly rounding (assess needs \T\ fall precautionary measures) done. Abuse screen: Denies threats or abuse. Denies injuries from another. Nutritional screening: No deficits noted. Tuberculosis screening: No symptoms or risk factors identified. Assessment: 00:00 General: Appears comfortable, Behavior is calm, cooperative. Pain: Denies pain. Neuro: ha1 Level of Consciousness is awake, alert, obeys commands, Oriented to person, place, time, situation. Cardiovascular: Patient's skin is warm and dry. Respiratory: Airway is patent Respiratory effort is even, unlabored, Respiratory pattern is regular, symmetrical. GI: Abdomen is flat, non-distended, Bowel sounds present X 4 quads. Reports nausea, vomiting. Musculoskeletal: Circulation, motion, and sensation intact. Range of motion: intact in all extremities. 01:00 Reassessment: Patient and/or family updated on plan of care and expected duration. Pain ha1 level reassessed. Patient is alert, oriented x 3, equal unlabored respirations, skin warm/dry/pink. 02:08 Reassessment: Patient and/or family updated on plan of care and expected duration. Pain ha1 level reassessed. Patient is alert, oriented x 3, equal unlabored respirations, skin warm/dry/pink. Vital Signs: 06/19 22:54 BP 144 / 102; Pulse 105; Resp 19; Temp 98.3; Pulse Ox 98% ; Weight 72.57 kg; Height 6 kd3 ft. 0 in. ; Pain 0/10; 06/20 01:00 BP 147 / 97; Pulse 102; Resp 17 S; Pulse Ox 99% on R/A; ha1 02:00 BP 140 / 87; Pulse 95; Resp 18 S; Temp 98.4(O); Pulse Ox 98% on R/A; ha1 06/19 22:54 Body Mass Index 21.70 (72.57 kg, 182.88 cm) kd3 06/19 22:54 Pain Scale: Adult kd3 ED Course: 06/19 22:45 Patient arrived in ED. ra3 22:56 Ayaz Moore MD is Attending Physician. rt 22:57 Triage completed. kd3 22:57 Arm band placed on left wrist. kd3 23:00 Patient has correct armband on for positive identification. Placed in gown. Bed in low ha1 position. Call light in reach. Side rails up X 1. 06/20 00:15 Inserted saline lock: 22 gauge in right antecubital area, using aseptic technique. ha1 Blood collected. 00:42 Magnesium Sent. pf1 00:42 Troponin High Sensitivity Sent. pf1 00:42 CBC with Diff Sent. pf1 00:42 CMP Sent. pf1 00:42 Lipase Sent. pf1 00:58 Abdomen Limited US In Process Unspecified. EDMS 02:13 No provider procedures requiring assistance completed. IV discontinued, intact, ha1 bleeding controlled, No redness/swelling at site. Pressure dressing applied. 02:15 Provided Education on: medication administration . ha1 Administered Medications: 00:40 Drug: NS 0.9% IV 1000 ml IV at 1 bolus Per protocol; 1000 mL bolus Route: IV; Rate: 1 pf1 bolus; Site: right antecubital; 02:15 Follow up: Response: No adverse reaction; IV Status: Completed infusion; IV Intake: ha1 1000ml Medication: 02:15 VIS not applicable for this client. ha1 Intake: 02:15 IV: 1000ml; Total: 1000ml. ha1 Outcome: 01:40 Discharge ordered by . rt 02:14 Discharged to home ambulatory, ha1 02:14 Condition: stable 02:14 Discharge instructions given to patient, Instructed on discharge instructions, follow up and referral plans. medication usage, Demonstrated understanding of instructions, follow-up care, medications, Prescriptions given X 1, 02:16 Patient left the ED. ha1 Signatures: Dispatcher [employer] EDMS Mery Walsh RN RN kd3 Yessenia West RN RN ha1 Ayaz Moore MD MD rt Adrienne Melchor RN RN pf1 Mary Marc ra3
--- NOTE | 2023-06-21 01:41 | EDPHYS ---
Physician Documentation [facility] Name: Jhonny Pompa Age: 42 yrs Sex: Male : 1980 Arrival Date: 06/20/2023 Time: 22:42 Bed 10 Private MD: ED Physician Ayaz Moore HPI: 06/20 04:08 This 42 yrs old Male presents to ER via Ambulatory with complaints of rt Dizziness, shakey,low energy,stomach issues. 04:08 Patient presents to the ED with fatigue, reported nausea without vomiting as well as a rt discomfort to the right upper quadrant, denies overt pain. Denies other acute complaints at this time, no other aggravating or alleviating factors.. Historical: - Allergies: 06/19 22:57 meloxicam; kd3 22:57 Tylenol; kd3 - Home Meds: 22:57 Cymbalta Oral [Active]; Valium Oral [Active]; Tramadol Oral [Active]; kd3 - PMHx: 22:57 Depression; Anxiety; kd3 - Immunization history:: Adult Immunizations up to date. - Social history:: Smoking status: Patient denies any tobacco usage or history of. Smoking status: Reported history of juuling and/or vaping. ROS: 06/20 04:08 Cardiovascular: Negative for chest pain, palpitations, and edema, Respiratory: Negative rt for shortness of breath, cough, wheezing, and pleuritic chest pain, MS/Extremity: Negative for injury and deformity, Skin: Negative for injury, rash, and discoloration, Neuro: Negative for headache, weakness, numbness, tingling, and seizure, Constitutional: Positive for fatigue, Negative for body aches, Abdomen/GI: Positive for nausea, Negative for vomiting, Exam: 04:08 Constitutional: This is a well developed, well nourished patient who is awake, alert, rt and in no acute distress. Head/Face: Normocephalic, atraumatic. Chest/axilla: Normal chest wall appearance and motion. Nontender with no deformity. No lesions are appreciated. Cardiovascular: Regular rate and rhythm with a normal S1 and S2. No gallops, murmurs, or rubs. Normal PMI, no JVD. No pulse deficits. Respiratory: Lungs have equal breath sounds bilaterally, clear to auscultation and percussion. No rales, rhonchi or wheezes noted. No increased work of breathing, no retractions or nasal flaring. Abdomen/GI: Soft, non-tender, with normal bowel sounds. No distension or tympany. No guarding or rebound. No evidence of tenderness throughout. Skin: Warm, dry with normal turgor. Normal color with no rashes, no lesions, and no evidence of cellulitis. MS/ Extremity: Pulses equal, no cyanosis. Neurovascular intact. Full, normal range of motion. Neuro: Awake and alert, GCS 15, oriented to person, place, time, and situation. Cranial nerves II-XII grossly intact. Motor strength 5/5 in all extremities. Sensory grossly intact. Cerebellar exam normal. Normal gait. Psych: Awake, alert, with orientation to person, place and time. Behavior, mood, and affect are within normal limits. 04:08 ECG was reviewed by the Attending Physician. Vital Signs: 06/19 22:54 BP 144 / 102; Pulse 105; Resp 19; Temp 98.3; Pulse Ox 98% ; Weight 72.57 kg; Height 6 kd3 ft. 0 in. ; Pain 0/10; 06/20 01:00 BP 147 / 97; Pulse 102; Resp 17 S; Pulse Ox 99% on R/A; ha1 02:00 BP 140 / 87; Pulse 95; Resp 18 S; Temp 98.4(O); Pulse Ox 98% on R/A; ha1 06/19 22:54 Body Mass Index 21.70 (72.57 kg, 182.88 cm) kd3 06/19 22:54 Pain Scale: Adult kd3 MDM: 00:10 Patient medically screened. rt 04:08 Differential diagnosis: Gallstones, electrolyte disturbance, dysrhythmia. Data rt reviewed: vital signs, nurses notes, lab test result(s), EKG, radiologic studies. I considered the following discharge prescriptions or medication management in the emergency department Medications were administered in the Emergency Department. See MAR. Test considered but Not performed: CT: Benign abdominal examination, CT scan not indicated. Counseling: I had a detailed discussion with the patient and/or guardian regarding the historical points, exam findings, and any diagnostic results supporting the discharge/admit diagnosis, lab results, radiology results, the need for outpatient follow up, to return to the emergency department if symptoms worsen or persist or if there are any questions or concerns that arise at home. 06/20 00:12 Order name: CBC with Diff; Complete Time: :18 rt 06/20 00:12 Order name: CMP; Complete Time: :18 rt 06/20 00:12 Order name: Lipase; Complete Time: :18 rt 06/20 00:12 Order name: Troponin High Sensitivity; Complete Time: :18 rt 06/20 00:12 Order name: Magnesium; Complete Time: :18 rt 06/20 00:12 Order name: Abdomen Limited US rt 06/20 00:12 Order name: EKG; Complete Time: 00:13 rt 06/20 00:12 Order name: IV Saline Lock; Complete Time: :42 rt 06/20 00:12 Order name: Labs collected and sent; Complete Time: 00:42 rt 06/20 00:12 Order name: EKG - Nurse/Tech; Complete Time: 01:55 rt EC:08 Rate is 81 beats/min. Rhythm is regular, Normal Sinus Rhythm with No ectopy. QRS [place] rt is Normal. GA interval is normal. QRS interval is normal. QT interval is normal. No Q waves. T waves are Normal. No ST changes noted. Interpreted by me. Administered Medications: 00:40 Drug: NS 0.9% IV 1000 ml IV at 1 bolus Per protocol; 1000 mL bolus Route: IV; Rate: 1 pf1 bolus; Site: right antecubital; 02:15 Follow up: Response: No adverse reaction; IV Status: Completed infusion; IV Intake: ha1 1000ml Disposition Summary: 06/21/23 01:40 Discharge Ordered Notes: Location: Home rt Problem: new rt Symptoms: have improved rt Condition: Stable rt Diagnosis - Nausea rt Followup: rt - With: Private Physician - When: 5 - 6 days - Reason: Discharge Instructions: - Discharge Summary Sheet rt - Nausea, Adult rt Forms: - Medication Reconciliation Form rt - Thank You Letter rt - Antibiotic Education rt - Prescription Opioid Use rt - Patient Portal Instructions rt - Leadership Thank You Letter rt Prescriptions: - ondansetron 4 mg Oral Tablet,disintegrating - take 1 tablet ORAL route every 6 hours as needed for nausea and vomiting; 18 rt tablet; Refills: 0, Product Selection Permitted Signatures: Dispatcher Niche Mery Ashraf RN RN kd3 Ayaz Moore MD MD rt Adrienne Melchor, PAZ RN pf1 Yessenia West RN ha1
[2023-06-21 03:19] VITALS: BP 140/87; TEMP 98.4; O2SAT 98
--- NOTE | 2023-06-21 09:38 | EKG ---
Test Date: 2023-06-21 Test Time: 00:29:34 Certified Nursing Attendant: LON MEASUREMENT RESULTS: Intervals: Rate: 81 MN: 136 QRSD: 86 QT: 366 QTc: 425 [place]: P: 54 MN: 136 QRS: 89 T: 81 INTERPRETIVE STATEMENTS: Normal sinus rhythm Normal ECG Compared to ECG 06/04/2016 21:46:32 No significant changes Electronically Signed On 06-21-23 09:38:00 CDT by Anibal Kearney
--- NOTE | 2023-06-22 15:30 | RAD REPORT ---
EXAM DESCRIPTION: US - Abdomen Exam Limited - 06/21/2023 12:56 am CLINICAL HISTORY: 42 years, Male, ruq pain COMPARISON: None TECHNIQUE: Grayscale and color doppler images of the right upper quadrant are provided for evaluatio n. FINDINGS: Liver: Not imaged. Gallbladder: The gallbladder demonstrate to be within normal limits. No evidence for cholelithiasis. Gallbladder wall thickness measures 0.7 mm. There is no pericholecystic fluid. Negative sonographic M urphy's sign, per research subject. Biliary tree: Not visualized. No intrahepatic biliary ductal dilatation. Pancreas: Not imaged Right kidney: Not imaged. Abdominal cavity: Not imaged. Aorta and IVC: Not imaged. IMPRESSION: Limited study. No gross abnormalities within the limited visualization of the gallbladde r. Electronically signed by: Raz Main MD 06/21/2023 01:22 AM CDT Due to temporary technical issues with the PACS/Fluency reporting system, reports are being signed by the in house radiologists without review as a courtesy to insure prompt reporting. The interpreting radiologist is fully responsible for the content of the report
== END 2023-06-21 02:16 | disposition home or self-care (01) ==
LOC: ER 22:42
DX: R11.0 Nausea (principal); R53.83 Other fatigue; F32.A Depression, unspecified; F41.9 Anxiety disorder, unspecified; Z88.6 Allergy status to analgesic agent
CPT/HCPCS: 96361; 93005; 85025; 36415; 83735; 84484; 83690; 80053; 76705; 96360; 99284; J7030

== ENCOUNTER 2023-07-15 06:53 | Emergency (ER) | payer OTHER ==
--- OUTSIDE RECORDS SUMMARY | 2023-07-15 06:57 | XMS REPORT | Continuity of Care Document ---
Author Name Unknown Address [address] [facility] [address] [place] [address] [facility] thconnect Address [address] [facility] [address] [place] [address] Care Team Providers Care Desulphurizer Operator Name Role Phone Gabriel Noriega Primary Care Physician KANDY DELAROSA Attending Clinician Unavailable SANJUANITA HERNANDEZ Attending Clinician Unavailabl cee Hernandez REMOTE SENSING TECHNICIANSanjuanita Lacey Attending Clinician [phone] June Marie Attending Clinician Doctor Unassigned, Parks Attending Clinician U navailable Payers Payer Name Policy Type Policy Number Effective Date Expirati on Date Source [facility] [id number] 2014 00:00:00 2021 00:00:00 Problems Condition Name Condition Details Condition Category Status Onset Date Resolution Date Last Treatment Date Treating Clinician Comments Source No known active problems No known active problems Disease [facility] Allergies, Adverse Reactions, Alerts Allergy Name Allergy Type Status Severity Reaction(s) Onset Date Inactive Date Treating Clinician Comments Source Acetamin ophen Propensi ty to adverse reaction s Active Unknown - See comments 06-29 00:00: 00 Burning in stomach [facility] Meloxica m Propensi ty to adverse reaction s Active Unknown - See comments 06-29 00:00: 00 burnig in stomach [facility] Social History Social Habit Start Date Stop Date Quantity Comments Source Exposure to SARS-CoV-2 (event) Not sure [facility] Tobacco use and exposure 2021-06-29 00:00:00 2021-06-29 00:00:00 Never used [facility] Sex Assigned At 1980 00:00:00 1980 00:00:00 [facility] Smoking Status Start Date Stop Date Source Never sm[facility] Medications Ordered Medication Name Filled Medication Name Start Date Stop Date Current Medication? Ordering Clinician Indication Dosage Frequency Signature (SIG) Comments Components Source DULoxetine 20 mg capsule 06-29 12:36: 48 Yes 20mg Take 20 mg by mouth daily. [facility] amoxicillin -clavulanat e (AUGMENTIN) 875-125 mg per tablet 06-29 00:00: 00 07-10 04:59 :00 No [id number] 1{tbl} Take 1 tablet by mouth 2 (two) times daily for 10 days. [facility] Vital Signs Vital Name Observation Time Observation Value Comments S ource Systolic blood pressure 2021-06-29 17:11:00 129 mm[Hg] [facility] Diastolic blood pressure 2021-06-29 17:11:00 89 mm[Hg] [facility] Heart rate 2021-06-29 17:11:00 97 /min [facility] Body temperature 2021-06-29 17:11:00 36.78 Jaimee [facility] Respiratory rate 2021-06-29 17:11:00 17 /min [facility] Body height 2021-06-29 17:11:00 182.9 cm [facility] Body weight 2021-06-29 17:11:00 66.877 kg [facility] BMI 2021-06-29 17:11:00 20.00 kg/m2 [facility] Oxygen saturation in Arterial blood by Pulse oximetry 2021-06-29 17:11:00 98 /min [facility] Procedures Procedure Date / Time Performed Performing Clinicia n Source POCT URINALYSIS 2021-06-29 17:20:00 Sanjuanita Hernandez [facility] Encounters Start Date/Time End Date/Time Encounter Type Admission Type Attending Clinicians Care Facility Care Department Encounter ID Source 2022-04-26 13:16:28 2022-04-26 13:16:28 Outpatient S[facility] [id number] Brown Zaldivar 2021-07-06 13:00:00 2021-07-06 13:00:00 Outpatient Whitney DAVEBrooke KANDY [facility] [id number] [facility] 2021-06-29 13:30:00 2021-06-29 13:30:00 Outpatient SANJUANITA LOUISE [facility] [id number] [facility] 2021-06-29 12:40:00 2021-06-29 12:58:01 Urgent Care Sanjuanita Hernandez, Critical access hospital?[facility] [id number] [facility] 2021-06-29 00:00:00 2021-06-29 00:00:00 Orders Only Doctor Unassigned, Parks [facility] [id number] [facility] Results Test Description Test Time Test Comments Results Result Co mments Source [facility]
[2023-07-15] MEDS ORDERED: KETOROLAC 30 MG/ML INJ ONE (07:20)
[2023-07-15] MEDS ORDERED: ONDANSETRON 4 MG/2 ML VIAL ONE (07:20)
[2023-07-15] MEDS ORDERED: NA CHLORIDE 0.9% 1,000 ML ONE (07:20)
[2023-07-15 07:37] LABS: Absolute Basophils 0.1 K/uL (0-0.5); Absolute Eosinophils 0.1 K/uL (0-0.5); Absolute Lymphocytes (CBC) 3.5 K/uL (0.7-4.9); Absolute Monocytes 0.7 K/uL (0.1-1.3); Absolute Neutrophil 4.2 K/uL (1.8-8.0); Eosinophils % 1.7 % (0-4.4); Hemoglobin 14.2 g/dL (13.6-17.9); Lymphocytes % 40.3 % (15.3-44.8); MCH 29.1 pg (27.0-35.0); MCHC 33.1 g/dL (32.0-36.0); Monocytes % 8.2 % (3.3-12.3); Neutrophils % 48.8 % (41.7-73.7); Platelets 292 thou/uL (152-406); RBC Red Blood Cell Count 4.89 M/uL (4.33-5.43); Red Cell Distribution Width 13.3 % (12.1-15.2)
[2023-07-15 07:54] LABS: Albumin 3.9 g/dL (3.4-5.0); Bilirubin Total 0.3 mg/dL (0.2-1.0); Globulin 3.9 g/dL (2.3-3.5); Protein, Total 7.8 g/dL (6.4-8.2)
--- NOTE | 2023-07-15 08:19 | RAD REPORT ---
EXAM DESCRIPTION: CT - Abdomen Pelvis Wo Contrast - 07/15/2023 7:42 am CLINICAL HISTORY: Left flank pain COMPARISON: Stone Protocol dated 04/28/2022; Stone Protocol dated 08/27/2015 TECHNIQUE: Thin cut axial CT imaging of the abdomen and pelvis was performed without IV contrast. Mu ltiplanar reformats were generated and reviewed. All CT scans are performed using dose optimization technique as appropriate and may include automated exposure control or mA/KV adjustment according to patient size. FINDINGS: No suspicious findings in the lung bases. The liver, spleen, adrenal glands, and pancreas show no suspicious findings. Gallbladder and biliary tree are also without suspicious finding. Symmetric renal contour, without suspicious parenchymal findings within limits of noncontrast techniq ue. Mild left hydroureteronephrosis with a 5 mm calculus at the left vesicoureteral junction. 2-3 mm calculus at the left lower calyx. No dilated bowel loops or bowel wall thickening. No free air, free fluid or inflammatory stranding. N o hernia, mass or bulky lymphadenopathy. The urinary bladder is suboptimally distended limiting evalu ation. No suspicious bony findings. IMPRESSION: Mild left hydroureteronephrosis. Obstructing 5 mm calculus at the left vesicoureteral ju nction. Another tiny left lower calyx nonobstructing calculus. The findings were communicated to Bria Brambila on 07/15/2023 at 08:15 hours.
[2023-07-15] MEDS ORDERED: MORPHINE 4 MG/ML SYR ONE (08:43)
[2023-07-15 09:10] LABS: Sqamous Epithelial None Seen /HPF (None Seen); Urine Bacteria None Seen /HPF (<20); Urine Culture Reflex Order NOT NEEDED; Urine Mucus 2+ /HPF (None Seen); Urine RBC >50 /HPF (None Seen); Urine WBC <5 /HPF (<5)
[2023-07-15 09:13] LABS: Specific Gravity 1.017 (1.005-1.030); Urine Bilirubin NEGATIVE (Negative); Urine Blood 3+ (OVER) (Negative); Urine Clarity Extremely Turbid (Clear); Urine Color Light-Orange (Yellow); Urine Glucose NEGATIVE (Negative); Urine Ketones NEGATIVE (Negative); Urine Microscopic Reflex YN NO UMIC; Urine Nitrite NEGATIVE (Negative); Urine Protein 1+ (Negative); Urine Urobilinogen Normal (Normal); Urine pH 6.5 (5.0-7.0)
--- NOTE | 2023-07-15 09:27 | EDPHYS ---
Physician Documentation [facility] Name: Jhonny Pompa Age: 42 yrs Sex: Male : 1980 Arrival Date: 07/15/2023 Time: 06:53 Bed 14 Private MD: ED Physician Riki Ponce HPI: 07/14 07:17 This 42 yrs old Male presents to ER via Ambulatory with complaints of Low Back ms3 Pain, Abdominal Pain, Testicular Pain, Nausea/Vomiting. 07:17 42-year-old male with past medical history of anxiety, depression, kidney stone ms3 presents to the emergency department for left flank pain that radiates to the left groin. Patient states his pain is a 9/10. Patient denies any alleviating or inciting factors. . Historical: - Allergies: 07:12 meloxicam; ap3 07:12 Tylenol; ap3 - PMHx: 07:12 Anxiety; Depression; ap3 - Immunization history:: Client reports having NOT received the Covid vaccine. - Infectious Disease History:: Denies. - Social history:: Smoking status: Patient denies any tobacco usage or history of. ROS: 07:17 Constitutional: Negative for fever, and chills. Neck: Negative for injury, pain, and ms3 swelling, Cardiovascular: Negative for chest pain, and palpitations. Respiratory: Negative for shortness of breath, cough, wheezing, and pleuritic chest pain, 07:17 MS/Extremity: Negative for injury and deformity, Skin: Negative for injury, rash, and discoloration, 07:17 Abdomen/GI: Positive for nausea and vomiting, Exam: 07:17 Constitutional: This is a well developed, well nourished patient who is awake, alert, ms3 and in no acute distress. Head/Face: Normocephalic, atraumatic. Chest/axilla: Normal chest wall appearance and motion. Nontender with no deformity. Cardiovascular: Regular rate and rhythm with a normal S1 and S2. No gallops, murmurs, or rubs. Normal PMI, no JVD. No pulse deficits. Respiratory: Lungs have equal breath sounds bilaterally, clear to auscultation and percussion. No rales, rhonchi or wheezes noted. No increased work of breathing, no retractions or nasal flaring. Abdomen/GI: Soft, non-tender, with normal bowel sounds. No distension or tympany. No guarding or rebound. No evidence of tenderness throughout. Skin: Warm, dry with normal turgor. Normal color with no rashes, no lesions, and no evidence of cellulitis. 07:23 : Male external genitalia: normal, no discharge, no erythema, no swelling, no ms3 tenderness, Bilateral cremasteric reflexes present, Vital Signs: 07:09 BP 166 / 109; Pulse 85; Resp 18; Temp 98.7; Pulse Ox 100% ; Weight 69.85 kg; Pain 9/10; ap3 07:34 BP 156 / 95; Pulse 70; Resp 18; Pulse Ox 100% ; ko1 09:15 BP 123 / 87; Pulse 91; Resp 16; Pulse Ox 100% ; ko1 09:39 BP 126 / 78; Pulse 84; Resp 16; Pulse Ox 99% ; ko1 07:09 Pain Scale: Adult ap3 MDM: 07:17 Differential diagnosis: UTI, Kidney stone vs Pyelonephritis. ms3 07:23 Patient medically screened. ms3 09:27 Data reviewed: vital signs, nurses notes, lab test result(s), radiologic studies, and ms3 as a result, I will discharge patient. I considered the following discharge prescriptions or medication management in the emergency department Medications were administered in the Emergency Department. See MAR. Counseling: I had a detailed discussion with the patient and/or guardian regarding the historical points, exam findings, and any diagnostic results supporting the discharge/admit diagnosis, lab results, radiology results, the need for outpatient follow up, to return to the emergency department if symptoms worsen or persist or if there are any questions or concerns that arise at home. Response to treatment: the patient's symptoms have markedly improved after treatment, and as a result, I will discharge patient. Special discussion: I discussed with the patient/guardian in detail that at this point there is no indication for admission to the hospital. It is understood, however, that if the symptoms persist or worsen the patient needs to return immediately for re-evaluation. ED course: Discussed labs, imaging with the patient. Patient to follow-up with Dr. Thorne in 2 to 3 days. Patient understands and agrees with plan. All questions were answered. Return precautions discussed include worsening symptoms, or any other concerns. On reevaluation patient symptoms improved, patient is alert and oriented x 4, no apparent distress, nontoxic-appearing, ambulatory in emergency department, speaking full sentences.. 07/14 07:17 Order name: CBC with Diff; Complete Time: 08:34 ms3 07/14 07:17 Order name: CMP; Complete Time: 08:34 ms3 07/14 07:17 Order name: Urinalysis w/ reflexes; Complete Time: 09:19 ms3 07/14 07:17 Order name: CT Abd/Pelvis - Without Contrast; Complete Time: 08:34 ms3 07/14 07:17 Order name: IV Saline Lock; Complete Time: 07:33 ms3 07/14 07:17 Order name: Labs collected and sent; Complete Time: 07:33 ms3 Administered Medications: 07:33 Drug: NS 0.9% IV 1000 ml IV at 1 bolus Per protocol; 1000 mL bolus Route: IV; Rate: 1 ko1 bolus; Site: right antecubital; 09:16 Follow up: Response: No adverse reaction; IV Status: Completed infusion; IV Intake: ko1 1000ml 07:33 Drug: TORadol - Ketorolac IVP 15 mg IVP once Route: IVP; Site: right antecubital; ko1 07:50 Follow up: Response: No adverse reaction ko1 07:33 Drug: Ondansetron IVP 4 mg IVP once; over 2 minutes Route: IVP; Site: right antecubital;ko1 07:50 Follow up: Response: Nausea is decreased ko1 08:46 Drug: morphine IVP or IV 4 mg IVP once over 4 mins Route: IVP; Infused Over: 4 mins; ko1 Site: right antecubital; 09:00 Follow up: Response: No adverse reaction; Pain is decreased; RASS: Alert and Calm (0) ko1 09:28 Drug: Potassium PO Effervescent Tablet 50 mEq PO once; dissolve in 4 ounces of water or ko1 juice Route: PO; 09:39 Follow up: Response: No adverse reaction ko1 Disposition Summary: 07/15/23 09:26 Discharge Ordered Notes: Location: Home ms3 Condition: Stable ms3 Diagnosis - Left UVJ Kidney stone 5 mm ms3 - Left flank pain ms3 - Hypokalemia ms3 Followup: ms3 - With: Ronny Thorne MD - When: 2 - 3 days - Reason: Recheck today's complaints Discharge Instructions: - Discharge Summary Sheet ms3 - Potassium Content of Foods ms3 - Kidney Stones, [id number] ms3 - Hypokalemia ms3 Forms: - Medication Reconciliation Form ms3 - Antibiotic Education ms3 - Prescription Opioid Use ms3 - Patient Portal Instructions ms3 - Leadership Thank You Letter ms3 Prescriptions: - tamsulosin 0.4 mg Oral capsule - take 1 capsule ORAL route every 24 hours; 20 capsule; Refills: 0, Product ms3 Selection Permitted - Tramadol 50 mg Oral Tablet - take 1 tablet ORAL route every 8 hours as needed; 12 tablet; Refills: 0, ms3 Product Selection Permitted Signatures: Dispatcher [employer] Inés Farias RN RN [id number] Riki Ponce DO DO ms3 Randa Perez RN RN ko1 Corrections: (The following items were deleted from the chart) 07:24 07:17 Constitutional: This is a well developed, well nourished patient who is awake, ms3 alert, and in no acute distress. Head/Face: Normocephalic, atraumatic. Chest/axilla: Normal chest wall appearance and motion. Nontender with no deformity. Cardiovascular: Regular rate and rhythm with a normal S1 and S2. No gallops, murmurs, or rubs. Normal PMI, no JVD. No pulse deficits. Respiratory: Lungs have equal breath sounds bilaterally, clear to auscultation and percussion. No rales, rhonchi or wheezes noted. No increased work of breathing, no retractions or nasal flaring. Abdomen/GI: Soft, non-tender, with normal bowel sounds. No distension or tympany. No guarding or rebound. No evidence of tenderness throughout. Skin: Warm, dry with normal turgor. Normal color with no rashes, no lesions, and no evidence of cellulitis. ms3
--- NOTE | 2023-07-15 09:27 | ER ---
Nurse's Notes [facility] Name: Jhonny Pompa Age: 42 yrs Sex: Male : 1980 Arrival Date: 07/15/2023 Time: 06:53 Bed 14 Private MD: Diagnosis: Left UVJ Kidney stone 5 mm;Left flank pain;Hypokalemia Presentation: 07/14 07:09 Chief complaint: Patient states: he started having left lower back pain at approx 0430 ap3 this morning that he rates a 9/10 on the pain scale. patient reports the pain radiates around to the left lower abdomen and is reporting nausea but no vomiting. Coronavirus screen: At this time, the client does not indicate any symptoms associated with coronavirus-19. Ebola Screen: No symptoms or risks identified at this time. Initial Sepsis Screen: Does the patient meet any 2 criteria? No. Patient's initial sepsis screen is negative. Does the patient have a suspected source of infection? No. Patient's initial sepsis screen is negative. Risk Assessment: Do you want to hurt yourself or someone else? Patient reports no desire to harm self or others. Onset of symptoms was July 15, 2023 at 04:30. 07:09 Method Of Arrival: Ambulatory ap3 07:09 Acuity: DONNELL 3 ap3 Triage Assessment: 07:12 General: Appears uncomfortable, Behavior is calm, cooperative. Pain: Complains of pain ap3 in left low back Pain radiates to left lower quadrant Pain currently is 9 out of 10 on a pain scale. Also complains of nausea. Neuro: Level of Consciousness is awake, alert, obeys commands, Oriented to person, place, time, situation. Cardiovascular: Patient's skin is warm and dry. Respiratory: Airway is patent Respiratory effort is even, unlabored, Respiratory pattern is regular, symmetrical. GI: Reports nausea. : Reports pain in left flank(s), testicle, with urination. Historical: - Allergies: 07:12 meloxicam; ap3 07:12 Tylenol; ap3 - PMHx: 07:12 Anxiety; Depression; ap3 - Immunization history:: Client reports having NOT received the Covid vaccine. - Infectious Disease History:: Denies. - Social history:: Smoking status: Patient denies any tobacco usage or history of. Screenin:13 Abuse screen: Denies threats or abuse. Nutritional screening: No deficits noted. ap3 Tuberculosis screening: No symptoms or risk factors identified. 07:34 [facility] ED Fall Risk Assessment (Adult) History of falling in the last 3 months, ko1 including since admission No falls in past 3 months (0 pts) Confusion or Disorientation No (0 pts) Intoxicated or Sedated No (0 pts) Impaired Gait No (0 pts) Mobility Assist Device Used No (0 pt) Altered Elimination No (0 pt) Score/Fall Risk Level 0 - 2 = Low Risk Oriented to surroundings, Maintained a safe environment, Educated pt \T\ family on fall prevention, incl call for assistance when getting out of bed, Assessed \T\ reinforced patient's understanding of fall precautions, Provided non-skid footwear, Hourly rounding (assess needs \T\ fall precautionary measures) done, Used ambulatory aids as needed (educated on \T\ assisted with), Used gait belt as appropriate. Assessment: 07:35 General: Appears distressed, uncomfortable, Behavior is cooperative, appropriate for ko1 age, restless. Pain: Complains of pain in abdomen and left lower quadrant and back and left low back. Neuro: No deficits noted. Cardiovascular: No deficits noted. Respiratory: No deficits noted. GI: Bowel sounds present X 4 quads. Abd is soft and non tender X 4 quads. : No deficits noted. EENT: No deficits noted. Derm: No deficits noted. Musculoskeletal: No deficits noted. Vital Signs: 07:09 BP 166 / 109; Pulse 85; Resp 18; Temp 98.7; Pulse Ox 100% ; Weight 69.85 kg; Pain 9/10; ap3 07:34 BP 156 / 95; Pulse 70; Resp 18; Pulse Ox 100% ; ko1 09:15 BP 123 / 87; Pulse 91; Resp 16; Pulse Ox 100% ; ko1 09:39 BP 126 / 78; Pulse 84; Resp 16; Pulse Ox 99% ; ko1 07:09 Pain Scale: Adult ap3 ED Course: 06:57 Patient arrived in ED. gm2 07:01 Riki Ponce DO is Attending Physician. ms3 07:03 Randa Perez, PAZ is Primary Nurse. ko1 07:12 Triage completed. ap3 07:13 Arm band placed on right wrist. ap3 07:13 Patient has correct armband on for positive identification. Bed in low position. Call ap3 light in reach. Side rails up X 1. Adult w/ patient. Pulse ox on. NIBP on. 07:33 Door closed. Noise minimized. Lights dimmed. Warm blanket given. ko1 07:33 CBC with Diff Sent. ko1 07:33 CMP Sent. ko1 07:33 No provider procedures requiring assistance completed. Inserted saline lock: 20 gauge ko1 in right antecubital area, using aseptic technique. Blood collected. 07:34 Provided Education on: LABS/TESTS. ko1 07:34 Initial lab(s) drawn, by me, sent to lab. ko1 07:44 CT Abd/Pelvis - Without Contrast In Process Unspecified. EDMS 08:54 Urinalysis w/ reflexes Sent. ko1 09:26 Ronny Thorne MD is Referral Physician. ms3 09:39 IV discontinued, intact, bleeding controlled, No redness/swelling at site. Pressure ko1 dressing applied. Administered Medications: 07:33 Drug: NS 0.9% IV 1000 ml IV at 1 bolus Per protocol; 1000 mL bolus Route: IV; Rate: 1 ko1 bolus; Site: right antecubital; 09:16 Follow up: Response: No adverse reaction; IV Status: Completed infusion; IV Intake: ko1 1000ml 07:33 Drug: TORadol - Ketorolac IVP 15 mg IVP once Route: IVP; Site: right antecubital; ko1 07:50 Follow up: Response: No adverse reaction ko1 07:33 Drug: Ondansetron IVP 4 mg IVP once; over 2 minutes Route: IVP; Site: right antecubital;ko1 07:50 Follow up: Response: Nausea is decreased ko1 08:46 Drug: morphine IVP or IV 4 mg IVP once over 4 mins Route: IVP; Infused Over: 4 mins; ko1 Site: right antecubital; 09:00 Follow up: Response: No adverse reaction; Pain is decreased; RASS: Alert and Calm (0) ko1 09:28 Drug: Potassium PO Effervescent Tablet 50 mEq PO once; dissolve in 4 ounces of water or ko1 juice Route: PO; 09:39 Follow up: Response: No adverse reaction ko1 Medication: 07:35 VIS not applicable for this client. ko1 Intake: 09:16 IV: 1000ml; Total: 1000ml. ko1 Outcome: 09:26 Discharge ordered by . ms3 09:39 Discharged to home ambulatory, with family, ko1 09:39 Condition: improved 09:39 Discharge instructions given to patient, family, Instructed on discharge instructions, follow up and referral plans. medication usage, Demonstrated understanding of instructions, follow-up care, medications, Prescriptions given X 2, 09:40 Patient left the ED. ko1 Signatures: Dispatcher [employer] EDWY Inés Lyons, PAZ RN ap3 Riki Ponce DO DO ms3 Randa Perez RN RN ko1 Rhonda Le gm2
[2023-07-15] MEDS ORDERED: POTASSIUM 25 MEQ EFFERV TAB ONE (09:29)
[2023-07-15 09:50] VITALS: BP 126/78; TEMP 98.7; O2SAT 99
== END 2023-07-15 09:40 | disposition home or self-care (01) ==
LOC: ER 06:53
DX: N20.0 Calculus of kidney (principal); Z87.442 Personal history of urinary calculi; Z88.6 Allergy status to analgesic agent
CPT/HCPCS: 96361; 85025; 36415; 81003; 80053; 74176; 96375; 96374; 99284; J2405; J7030

== ENCOUNTER 2023-07-20 07:22 | Emergency (ER) | payer OTHER ==
--- OUTSIDE RECORDS SUMMARY | 2023-07-20 07:25 | XMS REPORT | Continuity of Care Document ---
Author Name Unknown Address [address] [facility] [address] [place] [address] [facility] thconnect Address [address] [facility] [address] [place] [address] Care Team Providers Care Pathology Lab Technician Name Role Phone Gabriel Noriega Primary Care Physician [phone] KANDY DELAROSA Attending Clinician Unavailable SANJUANITA HERNANDEZ Attending Clinician Unavailabl cee Hernandez MARKETING ASSISTANT MANAGERSanjuanita Lacey Attending Clinician June Marie Attending Clinician Doctor Unassigned, Snyder Attending Clinician U navailable Payers Payer Name Policy Type Policy Number Effective Date Expirati on Date Source [facility] [id number] 2014 00:00:00 2021 00:00:00 Problems Condition Name Condition Details Condition Category Status Onset Date Resolution Date Last Treatment Date Treating Clinician Comments Source No known active problems No known active problems Disease [facility] Allergies, Adverse Reactions, Alerts Allergy Name Allergy Type Status Severity Reaction(s) Onset Date Inactive Date Treating Clinician Comments Source Acetamin ophen Propensi ty to adverse reaction s Active Unknown - See comments 06-29 00:00: 00 Burning in stomach [facility] Meloxica m Propensi ty to adverse reaction s Active Unknown - See comments 06-29 00:00: 00 burnig in stomach [facility] Social History Social Habit Start Date Stop Date Quantity Comments Source Exposure to SARS-CoV-2 (event) Not sure [facility] Tobacco use and exposure 2021-06-29 00:00:00 2021-06-29 00:00:00 Never used [facility] Sex Assigned At 1980 00:00:00 1980 00:00:00 [facility] Smoking Status Start Date Stop Date Source Never smoker [facility] Medications Ordered Medication Name Filled Medication Name Start Date Stop Date Current Medication? Ordering Clinician Indication Dosage Frequency Signature (SIG) Comments Components Source DULoxetine 20 mg capsule 06-29 12:36: 48 Yes 20mg Take 20 mg by mouth daily. [facility] amoxicillin -clavulanat e (AUGMENTIN) 875-125 mg per tablet 06-29 00:00: 00 07-10 04:59 :00 No [id number] 1{tbl} Take 1 tablet by mouth 2 (two) times daily for 10 days. [facility] Vital Signs Vital Name Observation Time Observation Value Comments S ource Systolic blood pressure 2021-06-29 17:11:00 129 mm[facility]Hg[facility] Diastolic blood pressure 2021-06-29 17:11:00 89 mm[Hg] [facility] Heart rate 2021-06-29 17:11:00 97 /min [facility] Body temperature 2021-06-29 17:11:00 36.78 Jaimee [facility] Respiratory rate 2021-06-29 17:11:00 17 /min [facility] Body height 2021-06-29 17:11:00 182.9 cm [facility] Body weight 2021-06-29 17:11:00 66.877 kg [facility] BMI 2021-06-29 17:11:00 20.00 kg/m2 [facility] Oxygen saturation in Arterial blood by Pulse oximetry 2021-06-29 17:11:00 98 /min [facility] Procedures Procedure Date / Time Performed Performing Clinicia n Source POCT URINALYSIS 2021-06-29 17:20:00 Sanjuanita Hernandez [facility] Encounters Start Date/Time End Date/Time Encounter Type Admission Type Attending Clinicians Care Facility Care Department Encounter ID Source 2022-04-26 13:16:28 2022-04-26 13:16:[address] [facility] [id number] Brown Zaldivar 2021-07-06 13:00:00 2021-07-06 13:00:00 Outpatient Whitney DAVEBrooke KANDY [facility] [id number] [facility] 2021-06-29 13:30:00 2021-06-29 13:30:00 Outpatient SANJUANITA LOUISE [facility] [id number] [facility] 2021-06-29 12:40:00 2021-06-29 12:58:01 Urgent Care Sanjuanita Hernandez, [facility] [id number] [facility] 2021-06-29 00:00:00 2021-06-29 00:00:00 Orders Only Doctor Unassigned, Snyder [facility] [id number] [facility] Results Test Description Test Time Test Comments Results Result Co mments Source [facility]
[2023-07-20] MEDS ORDERED: KETOROLAC 30 MG/ML INJ ONE (08:04)
[2023-07-20] MEDS ORDERED: NA CHLORIDE 0.9% 1,000 ML ONE (08:04)
[2023-07-20 08:09] LABS: Absolute Basophils 0.1 K/uL (0-0.5); Absolute Eosinophils 0.1 K/uL (0-0.5); Absolute Monocytes 0.7 K/uL (0.1-1.3); Absolute Neutrophil 5.6 K/uL (1.8-8.0); Basophils % 0.7 % (0-1.3); Hemoglobin 14.3 g/dL (13.6-17.9); Lymphocytes % 23.9 % (15.3-44.8); MCH 29.5 pg (27.0-35.0); MPV 6.5 fL (7.6-11.3); Monocytes % 7.9 % (3.3-12.3); Neutrophils % 66.5 % (41.7-73.7); Platelets 298 thou/uL (152-406); RBC Red Blood Cell Count 4.83 M/uL (4.33-5.43); Red Cell Distribution Width 13.3 % (12.1-15.2)
[2023-07-20 08:13] LABS: Specific Gravity 1.005 (1.005-1.030); Sqamous Epithelial None Seen /HPF (None Seen); Urine Bacteria None Seen /HPF (<20); Urine Bilirubin NEGATIVE (Negative); Urine Blood 3+ (Negative); Urine Clarity Clear (Clear); Urine Color Colorless (Yellow); Urine Culture Reflex Order NOT NEEDED; Urine Glucose NEGATIVE (Negative); Urine Ketones NEGATIVE (Negative); Urine Microscopic Reflex YN ORDER UMIC; Urine Mucus Slight /HPF (None Seen); Urine Nitrite NEGATIVE (Negative); Urine Protein NEGATIVE (Negative); Urine Urobilinogen Normal (Normal); Urine WBC <5 /HPF (<5); Urine pH 6.5 (5.0-7.0)
--- NOTE | 2023-07-20 08:19 | RAD REPORT ---
EXAM DESCRIPTION: CT - Abdomen Pelvis Wo Contrast - 07/20/2023 8:05 am CLINICAL HISTORY: Abdominal pain COMPARISON: July 15, 2023 TECHNIQUE: Computed axial tomography of the abdomen and pelvis was obtained. IV and oral contrast we re not requested. All CT scans are performed using dose optimization technique as appropriate and may include automated exposure control or mA/KV adjustment according to patient size. FINDINGS: The evaluation of solid organs, vessels and bowel is limited secondary to the lack of con trast administration. 2 mm left renal calculus. Mild moderate left hydronephrosis. Dilatation left ureter. 4 millimeter [place] culus left UVJ. A right renal calculus is not seen. Liver, spleen pancreas adrenals grossly normal The appendix is normal. There is no evidence of diverticulitis. IMPRESSION: 4 millimeter calculus left UVJ with mild to moderate left hydronephrosis
[2023-07-20 08:34] LABS: Albumin 3.8 g/dL (3.4-5.0); Albumin/Globulin Ratio 0.9 (1.1-1.8); Anion Gap 6.4 mEq/L (5.0-15.0); Bilirubin Total 0.3 mg/dL (0.2-1.0); Globulin 4.1 g/dL (2.3-3.5); Potassium 3.4 mEq/L (3.5-5.1); Protein, Total 7.9 g/dL (6.4-8.2)
--- NOTE | 2023-07-20 09:44 | ER ---
Nurse's Notes [facility] Name: Jhonny Pompa Age: 42 yrs Sex: Male : 1980 Arrival Date: 07/20/2023 Time: 07:22 Bed 19 Private MD: Diagnosis: Kidney Stone/ Calculus in urethra;Hydroureter Presentation: 07/19 07:31 Chief complaint: Patient states: L flank pain that has been ongoing since 07/14. Pt ss reports he was seen in ER on the and diagnosed with a kidney stone. Has made an appointment with Dr. Thorne (urology) but cannot get in soon enough. Coronavirus screen: Client denies travel out of the [place] in the last 14 days. Ebola Screen: Patient denies exposure to infectious person. Patient denies travel to an Ebola-affected area in the 21 days before illness onset. Initial Sepsis Screen: Does the patient meet any 2 criteria? No. Patient's initial sepsis screen is negative. Does the patient have a suspected source of infection? No. Patient's initial sepsis screen is negative. Risk Assessment: Do you want to hurt yourself or someone else? Patient reports no desire to harm self or others. Onset of symptoms was July 15, 2023. 07:31 Method Of Arrival: Ambulatory ss 07:31 Acuity: DONNELL 3 ss Triage Assessment: 07:31 General: Appears uncomfortable, Behavior is calm, cooperative. Pain: Complains of pain ss in L flank Pain currently is 9 out of 10 on a pain scale. Respiratory: Airway is patent Respiratory effort is even, unlabored, Respiratory pattern is regular, symmetrical. 07:31 : Reports dark urine. Derm: Skin is intact, is healthy with good turgor, Skin is dry. ss Historical: - Allergies: 07:31 meloxicam; ss 07:31 Tylenol; ss - PMHx: 07:31 Anxiety; Depression; ss - Immunization history:: Client reports having NOT received the Covid vaccine. - Infectious Disease History:: Denies. - Social history:: Smoking status: Patient denies any tobacco usage or history of. Screenin:35 [facility] ED Fall Risk Assessment (Adult) History of falling in the last 3 months, db including since admission No falls in past 3 months (0 pts) Confusion or Disorientation No (0 pts) Intoxicated or Sedated No (0 pts) Impaired Gait No (0 pts) Mobility Assist Device Used No (0 pt) Altered Elimination No (0 pt) Score/Fall Risk Level 0 - 2 = Low Risk Oriented to surroundings, Maintained a safe environment. Abuse screen: Denies threats or abuse. Denies injuries from another. Nutritional screening: No deficits noted. Tuberculosis screening: No symptoms or risk factors identified. Assessment: 07:35 Reassessment: Patient appears in no apparent distress at this time. Patient and/or db family updated on plan of care and expected duration. Pain level reassessed. Patient is alert, oriented x 3, equal unlabored respirations, skin warm/dry/pink. General: Appears in no apparent distress. uncomfortable, Behavior is calm, cooperative. Pain: Complains of pain in back. Neuro: Level of Consciousness is awake, alert, obeys commands, Oriented to person, place, time, situation, Speech is normal. Cardiovascular: No deficits noted. Capillary refill < 3 seconds Patient's skin is warm and dry. Respiratory: Airway is patent Respiratory effort is even, unlabored, Respiratory pattern is regular, symmetrical. GI: No deficits noted. No signs and/or symptoms were reported involving the gastrointestinal system. : Reports pain in left flank(s). EENT: No deficits noted. No signs and/or symptoms were reported regarding the EENT system. Derm: No deficits noted. No signs and/or symptoms reported regarding the dermatologic system. 07:41 Reassessment: PATIENT OBTAINED URINE SPECIMEN. db 10:14 Reassessment: Patient appears in no apparent distress at this time. Patient and/or db family updated on plan of care and expected duration. Pain level reassessed. Reassessment: Patient states feeling better. Patient states symptoms have improved. General: Appears in no apparent distress. comfortable, Behavior is calm, cooperative. Neuro: Level of Consciousness is awake, alert, obeys commands. Vital Signs: 07:31 BP 179 / 104; Pulse 86; Resp 16; Temp 97.4(TE); Pulse Ox 97% on R/A; Weight 68.95 kg; ss Height 6 ft. 0 in. ; Pain 9/10; 09:00 BP 136 / 91; Pulse 80; Resp 16; Pulse Ox 100% on R/A; db 10:00 BP 149 / 99; Pulse 80; Resp 16; Temp 97.6(O); Pulse Ox 99% ; db 07:31 Body Mass Index 20.61 (68.95 kg, 182.88 cm) ss 07:31 Pain Scale: Adult ss ED Course: 07:24 Patient arrived in ED. mg5 07:27 Merline Romero MD is Attending Physician. gb1 07:31 Arm band placed on right wrist. ss 07:34 Catalina Duvall, RN is Primary Nurse. db 07:35 Triage completed. ss 07:35 Patient has correct armband on for positive identification. Bed in low position. Call db light in reach. Side rails up X2. Provided Education on: labs and pain control. Pulse ox on. NIBP on. Warm blanket given. 08:[address] via wheelchair. db 08:00 Initial lab(s) drawn, by me, sent to lab. Urine collected: clean catch specimen, clear. db Inserted saline lock: 20 gauge in right antecubital area, using aseptic technique. Blood collected. 08:06 CT Abd/Pelvis - Without Contrast In Process Unspecified. EDMS 08:15 [address] back from [address]. db 10:10 No provider procedures requiring assistance completed. IV discontinued, intact, db bleeding controlled, No redness/swelling at site. Administered Medications: 08:12 Drug: Ketorolac IVP 30 mg IVP once Route: IVP; Site: right antecubital; db 09:30 Follow up: Response: No adverse reaction db 08:15 Drug: NS 0.9% IV 1000 ml IV at 1 bolus Per protocol; 1000 mL bolus Route: IV; Rate: 1 db bolus; Site: right antecubital; 09:35 Follow up: Response: No adverse reaction; IV Status: Completed infusion; IV Intake: db 1000ml Medication: 07:35 VIS not applicable for this client. db Intake: 09:35 IV: 1000ml; Total: 1000ml. db Outcome: 09:44 Discharge ordered by . gb1 10:14 Discharged to home ambulatory, with family, db 10:14 Condition: stable 10:14 Discharge instructions given to patient, Instructed on discharge instructions, follow up and referral plans. Prescriptions given X 1, 10:16 Patient left the ED. nj1 Signatures: Dispatcher [employer] EDMS Shannon Valadez RN RN Catalina Duvall, RN RN Radhames Poolea, RN RN nj1 Miguel Rachael mg5 Merline Romero MD MD gb1
--- NOTE | 2023-07-20 09:44 | EDPHYS ---
Physician Documentation [facility] Name: Jhonny Pompa Age: 42 yrs Sex: Male : 1980 Arrival Date: 07/20/2023 Time: 07:22 Bed 19 Private MD: ED Physician Merline Romero HPI: 07/19 08:07 This 42 yrs old Male presents to ER via Ambulatory with complaints of Flank gb1 Pain. 08:07 Mr. Pompa is a 42-year-old male that presents with left flank pain since gbJuly 14. He was here in the emergency department and received a CT scan and workup for a kidney stone and was discharged home to follow-up with urology but is continually having increased frequency and urgency of urination. No hematuria or fevers and has been nauseated no vomiting. He did call to make an appoint with urology but stayed on hold too long and hung up and so his appointment is never been scheduled.. Historical: - Allergies: 07:31 meloxicam; ss 07:31 Tylenol; ss - PMHx: 07:31 Anxiety; Depression; ss - Immunization history:: Client reports having NOT received the Covid vaccine. - Infectious Disease History:: Denies. - Social history:: Smoking status: Patient denies any tobacco usage or history of. Exam: 08:08 Constitutional: This is a well developed, well nourished patient who is awake, alert, gb1 and in no acute distress. Head/Face: Normocephalic, atraumatic. Eyes: Pupils equal round and reactive to light, extra-ocular motions intact. Lids and lashes normal. Conjunctiva and sclera are non-icteric and not injected. Cornea within normal limits. Periorbital areas with no swelling, redness, or edema. ENT: Nares patent. No nasal discharge, no septal abnormalities noted. Tympanic membranes are normal and external auditory canals are clear. Oropharynx with no redness, swelling, or masses, exudates, or evidence of obstruction, uvula midline. Mucous membranes moist. Chest/axilla: Normal chest wall appearance and motion. Nontender with no deformity. No lesions are appreciated. Cardiovascular: Regular rate and rhythm with a normal S1 and S2. No gallops, murmurs, or rubs. Normal PMI, no JVD. No pulse deficits. Respiratory: Lungs have equal breath sounds bilaterally, clear to auscultation and percussion. No rales, rhonchi or wheezes noted. No increased work of breathing, no retractions or nasal flaring. Abdomen/GI: Soft, non-tender, with normal bowel sounds. No distension or tympany. No guarding or rebound. No evidence of tenderness throughout. Back: No spinal tenderness. Positive left CVA tenderness. Patient has full range of motion. Skin: Warm, dry with normal turgor. Normal color with no rashes, no lesions, and no evidence of cellulitis. MS/ Extremity: Pulses equal, no cyanosis. Neurovascular intact. Full, normal range of motion. Neuro: Awake and alert, GCS 15, oriented to person, place, time, and situation. Cranial nerves II-XII grossly intact. Motor strength 5/5 in all extremities. Sensory grossly intact. Cerebellar exam normal. Normal gait. Vital Signs: 07:31 BP 179 / 104; Pulse 86; Resp 16; Temp 97.4(TE); Pulse Ox 97% on R/A; Weight 68.95 kg; ss Height 6 ft. 0 in. ; Pain 9/10; 09:00 BP 136 / 91; Pulse 80; Resp 16; Pulse Ox 100% on R/A; db 10:00 BP 149 / 99; Pulse 80; Resp 16; Temp 97.6(O); Pulse Ox 99% ; db 07:31 Body Mass Index 20.61 (68.95 kg, 182.88 cm) ss 07:31 Pain Scale: Adult ss MDM: 07:28 Patient medically screened. gb1 08:08 Differential diagnosis: nephrolithiasis, pyelonephritis, UTI, diverticulitis. gb1 09:46 Data reviewed: vital signs, nurses notes, old medical records, radiologic studies, CT gb1 scan. ED course: Patient is clinically improved after IV Toradol and IV fluids.. 07/19 07:50 Order name: CBC with Diff; Complete Time: 08:20 gb1 07/19 07:50 Order name: CMP; Complete Time: 08:41 gb1 07/19 07:50 Order name: Lipase; Complete Time: 08:41 gb1 07/19 07:50 Order name: Urinalysis w/ reflexes; Complete Time: 08:20 gb1 07/19 07:50 Order name: CT Abd/Pelvis - Without Contrast; Complete Time: 08:20 gb1 07/19 07:50 Order name: IV Saline Lock; Complete Time: 08:08 gb1 07/19 07:50 Order name: Labs collected and sent; Complete Time: 08:08 gb1 Administered Medications: 08:12 Drug: Ketorolac IVP 30 mg IVP once Route: IVP; Site: right antecubital; db 09:30 Follow up: Response: No adverse reaction db 08:15 Drug: NS 0.9% IV 1000 ml IV at 1 bolus Per protocol; 1000 mL bolus Route: IV; Rate: 1 db bolus; Site: right antecubital; 09:35 Follow up: Response: No adverse reaction; IV Status: Completed infusion; IV Intake: db 1000ml Disposition Summary: 07/20/23 09:44 Discharge Ordered Notes: Location: Home gb1 Problem: an ongoing problem gb1 Symptoms: have improved gb1 Condition: Stable gb1 Diagnosis - Kidney Stone/ Calculus in urethra gb1 - Hydroureter gb1 Discharge Instructions: - Discharge Summary Sheet gb1 - Hydronephrosis gb1 - Lithotripsy gb1 - Dietary Guidelines to Help Prevent Kidney Stones gb1 Forms: - Medication Reconciliation Form gb1 - Antibiotic Education gb1 - Prescription Opioid Use gb1 - Patient Portal Instructions gb1 - Leadership Thank You Letter gb1 Prescriptions: - Ibuprofen 600 mg Oral Tablet - take 1 tablet ORAL route every 6 hours As needed take with food; 30 tablet; gb1 Refills: 0, Product Selection Permitted Signatures: Dispatcher [employer] EDMS Shannon Valadez RN RN ss Benton, Danielle, RN RN db Blocker, Gina, MD MD gb1 Corrections: (The following items were deleted from the chart) 07:51 07:51 CBC+H.LAB.BRZ ordered. EDMS EDMS 07:51 07:51 COMPREHENSIVE METABOLIC PANEL+C.LAB.BRZ ordered. EDMS EDMS 07:51 07:51 LIPASE+C.LAB.BRZ ordered. EDMS EDMS 07:51 07:51 Urinalysis+U.LAB.BRZ ordered. EDMS EDMS 07:51 07:51 Abdomen Pelvis Wo Con+CT.RAD.BRZ ordered. EDMS EDMS
[2023-07-20 10:57] VITALS: BP 136/91; TEMP 97.4; O2SAT 100
== END 2023-07-20 10:16 | disposition home or self-care (01) ==
LOC: ER 07:22
DX: N20.0 Calculus of kidney (principal); N21.1 Calculus in urethra; N13.4 Hydroureter; Z88.6 Allergy status to analgesic agent
CPT/HCPCS: 85025; 81001; 36415; 83690; 80053; 74176; J7030; 96361; 96374; 99285

== ENCOUNTER 2023-09-30 09:37 | Emergency (ER) | payer OTHER ==
[2023-09-30] MEDS ORDERED: MORPHINE 4 MG/ML SYR ONE ×2 (10:33→13:36)
[2023-09-30] MEDS ORDERED: ONDANSETRON 4 MG/2 ML VIAL ONE ×2 (10:33→13:36)
--- NOTE | 2023-09-30 11:14 | RAD REPORT ---
EXAM DESCRIPTION: CT - Abdomen Pelvis W Contrast - 09/30/2023 10:51 am CLINICAL HISTORY: Abdominal pain COMPARISON: June 2023 TECHNIQUE: Computed axial tomography of the abdomen pelvis was obtained. 100 cc Isovue-300 was admin istered intravenously. Oral contrast was not requested which limits evaluation of bowel and appendix All CT scans are performed using dose optimization technique as appropriate and may include automated exposure control or mA/KV adjustment according to patient size. FINDINGS: The liver, spleen, pancreas, adrenal and right kidney unremarkable. 2 millimeter calculus left kidney. No hydronephrosis. Biliary tree is normal caliber. Normal appendix There is no evidence of diverticulitis. IMPRESSION: No acute abnormality is displayed.
--- NOTE | 2023-09-30 11:16 | RAD REPORT ---
EXAM DESCRIPTION: US - Abdomen Exam Limited - 09/30/2023 10:41 am CLINICAL HISTORY: Abdominal pain. COMPARISON: May 2023 FINDINGS: The gallbladder wall is not thickened. A gallstone is not seen. The biliary tree is normal caliber. IMPRESSION: Unremarkable gallbladder ultrasound.
[2023-09-30 11:25] LABS: Absolute Basophils 0.1 K/uL (0-0.5); Absolute Lymphocytes (CBC) 0.8 K/uL (0.7-4.9); Absolute Monocytes 0.9 K/uL (0.1-1.3); Absolute Neutrophil 11.6 K/uL (1.8-8.0); Basophils % 0.4 % (0-1.3); Eosinophils % 0.3 % (0-4.4); Hematocrit 43.3 % (39.6-49.0); Hemoglobin 14.3 g/dL (13.6-17.9); Lymphocytes % 6.3 % (15.3-44.8); MCH 29.3 pg (27.0-35.0); MCV 88.7 fL (80-100); MPV 7.9 fL (7.6-11.3); Monocytes % 6.4 % (3.3-12.3); Neutrophils % 86.6 % (41.7-73.7); Platelets 264 thou/uL (152-406); RBC Red Blood Cell Count 4.87 M/uL (4.33-5.43)
--- OUTSIDE RECORDS SUMMARY | 2023-09-30 11:33 | XMS REPORT | Continuity of Care Document ---
Author Name Unknown Address [address] [facility] [address] [place] [address] [facility] thconnect Address [address] [facility]. [address] [place] [address] [address] Prov[address] Care Court Magistrate Name Role Phone Gabriel Noriega Primary Care Physician KANDY DELAROSA Attending Clinician Unavailable SANJUANITA HERNANDEZ Attending Clinician Unavailabl Sanjuanita Gonzalez Attending Clinician [phone] June Marie Attending Clinician [phone] Doctor Unassigned, [place] Attending Clinician U navailable Payers Payer Name Policy Type Policy Number Effective Date Expirati on Date Source [facility] [id number] 2014 00:00:00 2021 00:00:00 Problems Condition Name Condition Details Condition Category Status Onset Date Resolution Date Last Treatment Date Treating Clinician Comments Source No known active problems No known active problems Disease [facility] Allergies, Adverse Reactions, Alerts Allergy Name Allergy Type Status Severity Reaction(s) Onset Date Inactive Date Treating Clinician Comments Source Acetamin ophen Propensi ty to adverse reaction s Active Unknown - See comments 06-29 00:00: 00 Burning in stomach [facility] Meloxica m Propensi ty to adverse reaction s Active Unknown - See comments 06-29 00:00: 00 burnig in stomach [facility] Social History Social Habit Start Date Stop Date Quantity Comments Source Exposure to SARS-CoV-2 (event) Not sure [facility] Tobacco use and exposure 2021-06-29 00:00:00 2021-06-29 00:00:00 Never used [facility] Sex Assigned At 1980 00:00:00 1980 00:00:00 [facility] Smoking Status Start Date Stop Date Source [facility] smoker [facility] Medications Ordered Medication Name Filled Medication Name Start Date Stop Date Current Medication? Ordering Clinician Indication Dosage Frequency Signature (SIG) Comments Components Source DULoxetine 20 mg capsule 06-29 12:36: 48 Yes 20mg Take 20 mg by mouth daily. [facility] amoxicillin -clavulanat e (AUGMENTIN) 875-125 mg per tablet 06-29 00:00: 00 07-10 04:59 :00 No [id number] 1{tbl} Take 1 tablet by mouth 2 (two) times daily for 10 days. [facility] Vital Signs Vital Name Observation Time Observation Value Comments S ource Systolic blood pressure 2021-06-29 17:11:00 129 [facility]Hg[facility] Diastolic blood pressure 2021-06-29 17:11:00 89 mm[facility]Hg[facility] Heart rate 2021-06-29 17:11:00 97 /min [facility] Body temperature 2021-06-29 17:11:00 36.78 Jaimee [facility] Respiratory rate 2021-06-29 17:11:00 17 /min [facility] Body height 2021-06-29 17:11:[address] [facility] Body weight 2021-06-29 17:11:[address] [facility] BMI 2021-06-29 17:11:00 20.00 kg/m2 [facility] Oxygen saturation in Arterial blood by Pulse oximetry 2021-06-29 17:11:00 98 /min [facility] Procedures Procedure Date / Time Performed Performing Clinicia n Source POCT URINALYSIS 2021-06-29 17:20:00 Sanjuanita Hernandez [facility] Encounters Start Date/Time End Date/Time Encounter Type Admission Type Attending [facility] Care Facility Care Department Encounter ID Source 2022-04-26 13:16:28 2022-04-26 13:16:[address] [facility] [id number] Brown Zaldivar 2021-07-06 13:00:00 2021-07-06 13:00:00 Outpatient Whitney ISAURA KANDY [facility] [id number] [facility] 2021-06-29 13:30:00 2021-06-29 13:30:00 Outpatient SANJUANITA LOUISE [facility] [id number] [facility] 2021-06-29 12:40:00 2021-06-29 12:58:01 Urgent Care Sanjuanita Hernandez, [facility] [id number] [facility] 2021-06-29 00:00:00 2021-06-29 00:00:00 Orders Only Doctor Unassigned, [place]sonia [facility] [id number] [facility] Results Test Description Test Time Test Comments Results Result Co mments Source [facility]
[2023-09-30 11:40] LABS: Albumin 4.3 g/dL (3.4-5.0); Bilirubin Total 0.6 mg/dL (0.2-1.0); Globulin 4.2 g/dL (2.3-3.5); Protein, Total 8.5 g/dL (6.4-8.2)
[2023-09-30] MEDS ORDERED: NA CHLORIDE 0.9% 1,000 ML ONE (12:16)
[2023-09-30 12:20] LABS: Blood Morphology Comment NOT SEEN (NOT SEEN); Platelet Estimate ADEQ; White Blood Cell Scan OK (OK)
[2023-09-30 13:57] LABS: Urine Bilirubin NEGATIVE (Negative); Urine Blood Negative (Negative); Urine Clarity Clear (Clear); Urine Color Colorless (Yellow); Urine Glucose NEGATIVE (Negative); Urine Ketones TRACE (Negative); Urine Microscopic Reflex YN NO UMIC; Urine Nitrite NEGATIVE (Negative); Urine Protein NEGATIVE (Negative); Urine Urobilinogen Normal (Normal)
[2023-09-30 13:58] LABS: Specific Gravity > 1.030 (1.005-1.030)
--- NOTE | 2023-09-30 14:41 | ER ---
Nurse's Notes [facility] Name: Jhonny Pompa Age: 43 yrs Sex: Male : 1980 Arrival Date: 09/30/2023 Time: 09:37 Bed 23 Private MD: Diagnosis: Abdominal pain, unspecified;Nausea with vomiting, unspecified Presentation: 09/29 10:08 Chief complaint: Patient states: Nauseous for a couple of days, got worse yesterday, nj1 started vomiting and having diarrhea. Left sided abdominal pain. 10:08 Coronavirus screen: Vaccine status: Patient reports being unvaccinated. Ebola Screen: [place] Patient denies travel to an Ebola-affected area in the 21 days before illness onset. Risk Assessment: Do you want to hurt yourself or someone else? Patient reports no desire to harm self or others. Onset of symptoms was September 2023. 10:08 Method Of Arrival: Ambulatory [facility] 10:08 Acuity: DONNELL 3 [place] 10:08 Initial Sepsis Screen: Does the patient meet any 2 criteria? No. Patient's initial [place] sepsis screen is negative. Does the patient have a suspected source of infection? No. Patient's initial sepsis screen is negative. Historical: - Allergies: 10:19 meloxicam; pa1 10:19 Tylenol; pa1 - Home Meds: 10:19 Cymbalta Oral [Active]; Tramadol Oral [Active]; pa1 - PMHx: 10:19 Anxiety; Depression; Chronic leg pain (Unknown); pa1 - Immunization history:: Client reports having NOT received the Covid vaccine. - Infectious Disease History:: Denies. - Social history:: Smoking status: Reported history of juuling and/or vaping. - Family history:: not pertinent. - Hospitalizations: : No recent hospitalization is reported. Screenin:25 [facility] ED Fall Risk Assessment (Adult) History of falling in the last 3 months, [place] including since admission No falls in past 3 months (0 pts) Confusion or Disorientation No (0 pts) Intoxicated or Sedated No (0 pts) Impaired Gait No (0 pts) Mobility Assist Device Used No (0 pt) Altered Elimination No (0 pt) Score/Fall Risk Level 0 - 2 = Low Risk Oriented to surroundings, Maintained a safe environment, Hourly rounding (assess needs \T\ fall precautionary measures) done. Abuse screen: Denies threats or abuse. Denies injuries from another. Nutritional screening: No deficits noted. Tuberculosis screening: No symptoms or risk factors identified. Assessment: 10:10 General: Appears in no apparent distress. uncomfortable, Behavior is calm, cooperative, nj1 appropriate for age. 10:10 Pain: Complains of pain in abdomen Pain currently is 9 out of 10 on a pain scale. nj1 Neuro: Level of Consciousness is awake, alert, obeys commands, Oriented to person, place, time, situation. Cardiovascular: Patient's skin is warm and dry. Respiratory: Airway is patent Respiratory effort is even, unlabored. GI: Reports lower abdominal pain, upper abdominal pain, diarrhea, nausea, vomiting. 10:35 Reassessment: Not in room at this time. nj1 11:00 Reassessment: Patient appears in no apparent distress at this time. Patient and/or nj1 family updated on plan of care and expected duration. Pain level reassessed. Patient is alert, oriented x 3, equal unlabored respirations, skin warm/dry/pink. 12:11 Reassessment: Patient appears in no apparent distress at this time. Patient and/or nj1 family updated on plan of care and expected duration. Pain level reassessed. Patient is alert, oriented x 3, equal unlabored respirations, skin warm/dry/pink. Patient states symptoms have improved. 13:25 Reassessment: Patient appears in no apparent distress at this time. Patient and/or nj1 family updated on plan of care and expected duration. Pain level reassessed. Patient is alert, oriented x 3, equal unlabored respirations, skin warm/dry/pink. Vital Signs: 10:08 BP 134 / 96; Pulse 94; Resp 18; Temp 98.2(TE); Pulse Ox 100% on R/A; Weight 65.77 kg; nj1 Height 6 ft. 0 in. ; Pain 9/10; 11:00 BP 126 / 78; Pulse 102; Resp 18; Pulse Ox 97% on R/A; Pain 9; nj1 12:11 BP 110 / 99; Pulse 110; Resp 17; Pulse Ox 98% ; Pain 6; nj1 13:26 Pulse 103; Resp 18; Pulse Ox 98% on R/A; Pain 6; nj1 10:08 Body Mass Index 19.67 (65.77 kg, 182.88 cm) nj1 10:08 Pain Scale: Adult nj1 11:00 Pain Scale: Adult nj1 12:11 Pain Scale: Adult nj1 13:26 Pain Scale: Adult nj1 ED Course: 09:40 Patient arrived in ED. mr 09:42 Liu Scales MD is Attending Physician. rn 10:01 Bharati Bautista RN is Primary Nurse. nj1 10:10 Patient has correct armband on for positive identification. Bed in low position. Call nj1 light in reach. Provided Education on: call light, fall precautions. 10:19 Triage completed. nj1 10:20 Arm band placed on left wrist. nj1 10:20 Inserted saline lock: 20 gauge antecubital area, using aseptic technique. Blood kj2 collected. 10:43 US Abdomen Limited In Process Unspecified. EDMS 10:53 CT Abd/Pelvis - IV Contrast Only In Process Unspecified. EDMS 15:08 No provider procedures requiring assistance completed. IV discontinued, intact, nj1 bleeding controlled, Pressure dressing applied. Administered Medications: 10:54 Drug: Ondansetron IVP 4 mg IVP once; over 2 minutes Route: IVP; Site: right antecubital;nj1 12:13 Follow up: Response: No adverse reaction; Nausea is decreased nj1 10:56 Drug: morphine IVP or IV 4 mg IVP once over 4 mins Route: IVP; Infused Over: 4 mins; nj1 Site: right antecubital; 12:13 Follow up: Response: No adverse reaction; Pain is decreased nj1 12:19 Drug: Sodium Chloride 0.9% IVPB 1000 ml IVPB once Route: IVPB; Site: right antecubital; nj1 13:25 Follow up: IV Status: Completed infusion; IV Intake: 1000ml nj1 13:38 Drug: Ondansetron IVP 4 mg IVP once; over 2 minutes Route: IVP; Site: right antecubital;nj1 13:40 Drug: morphine IVP or IV 4 mg IVP once over 4 mins Route: IVP; Infused Over: 4 mins; nj1 Site: right antecubital; Medication: 15:08 VIS not applicable for this client. nj1 Intake: 13:25 IV: 1000ml; Total: 1000ml. nj1 Outcome: 14:40 Discharge ordered by . rn 15:08 Discharged to home ambulatory, nj1 15:08 Condition: stable 15:08 Discharge instructions given to patient, Instructed on discharge instructions, follow up and referral plans. medication usage, Demonstrated understanding of instructions, follow-up care, medications, Prescriptions given X 2, 15:08 Patient left the ED. nj1 Signatures: Dispatcher [employer] EDMS Ester Vargas, Reg Reg mr Liu Scales MD MD rn Jaco, Norma, RN RN nj1 Dian Wang RN RN kj2 Corrections: (The following items were deleted from the chart) 10:44 10:08 65.77 kg; Height 6 ft.; BMI: 19.6; Pain 9/10, Adult; nj1 nj1 11:00 10:08 BP 134 / 96; Pulse 94bpm; Resp 18bpm; Pulse Ox 100% RA; 65.77 kg; Height 6 ft. 0 nj1 in.; BMI: 19.6; Pain 9/10, Adult; nj1 12:12 12:11 BP 110 / 99; Pulse 116bpm; Resp 17bpm; Pulse Ox 98%; Pain 6/10, Adult; nj1 nj1
--- NOTE | 2023-09-30 14:41 | EDPHYS ---
[facility] Name: Jhonny Pompa Age: 43 yrs Sex: Male : 1980 Arrival Date: 09/30/2023 Time: 09:37 Bed 23 Private MD: ED Physician Liu Scales HPI: 09/29 12:51 This 43 yrs old Male presents to ER via Ambulatory with complaints of rn Abdominal Pain, Vomiting. 12:51 The patient presents to the emergency department with nausea, vomiting, abdominal pain. rn 12:53 Onset: The symptoms/episode began/occurred 3 day(s) ago. Possible causes: unknown. The rn symptoms are aggravated by nothing. The symptoms are alleviated by nothing. Severity of symptoms: At their worst the symptoms were moderate in the emergency department the symptoms are unchanged. The patient has not experienced similar symptoms in the past. Patient reports a few days of nausea/vomiting/diarrhea with abdominal pain. No blood in stool. Patient has had kidney stones in the past and this feels different. No fever.. Historical: - Allergies: 10:19 meloxicam; nj1 10:19 Tylenol; nj1 - Home Meds: 10:19 Cymbalta Oral [Active]; Tramadol Oral [Active]; nj1 - PMHx: 10:19 Anxiety; Depression; Chronic leg pain (Unknown); nj1 - Immunization history:: Client reports having NOT received the Covid vaccine. - Infectious Disease History:: Denies. - Social history:: Smoking status: Reported history of juuling and/or vaping. - Family history:: not pertinent. - Hospitalizations: : No recent hospitalization is reported. ROS: 12:53 Constitutional: Negative for fever, chills, and weight loss, Eyes: Negative for injury, rn pain, redness, and discharge, Neck: Negative for injury, pain, and swelling, Cardiovascular: Negative for chest pain, palpitations, and edema, Respiratory: Negative for shortness of breath, cough, wheezing, and pleuritic chest pain, Abdomen/GI: Positive for abdominal pain with nausea/vomiting/diarrhea MS/Extremity: Negative for injury and deformity, Skin: Negative for injury, rash, and discoloration, Neuro: Positive for generalized weakness and malaise Exam: 12:53 Constitutional: This is a well developed, well nourished patient who is awake, alert, rn and in no acute distress. ENT: Dry mucous membranes Cardiovascular: Tachycardic, regular. Respiratory: No increased work of breathing, no retractions or nasal flaring. Abdomen/GI: Soft, no focal tenderness MS/ Extremity: Pulses equal, no cyanosis. Neurovascular intact. Full, normal range of motion. Equal circumference. Neuro: Awake and alert, GCS 15 Vital Signs: 10:08 BP 134 / 96; Pulse 94; Resp 18; Temp 98.2(TE); Pulse Ox 100% on R/A; Weight 65.77 kg; nj1 Height 6 ft. 0 in. ; Pain 9/10; 11:00 BP 126 / 78; Pulse 102; Resp 18; Pulse Ox 97% on R/A; Pain 9/10; nj1 12:11 BP 110 / 99; Pulse 110; Resp 17; Pulse Ox 98% ; Pain 6/10; nj1 13:26 Pulse 103; Resp 18; Pulse Ox 98% on R/A; Pain 6/10; nj1 10:08 Body Mass Index 19.67 (65.77 kg, 182.88 cm) nj1 10:08 Pain Scale: Adult nj1 11:00 Pain Scale: Adult nj1 12:11 Pain Scale: Adult nj1 13:26 Pain Scale: Adult nj1 MDM: 09:42 Patient medically screened. rn 14:39 Differential diagnosis: Nonspecific abd pain, pancreatitis, appendicitis, rn diverticulitis, viral gastroenteritis, gastroenteritis. Data reviewed: vital signs, nurses notes, lab test result(s), radiologic studies, CT scan, ultrasound, and as a result, I will discharge patient. Counseling: I had a detailed discussion with the patient and/or guardian regarding the historical points, exam findings, and any diagnostic results supporting the discharge/admit diagnosis, lab results, radiology results, the need for outpatient follow up, to return to the emergency department if symptoms worsen or persist or if there are any questions or concerns that arise at home. Special discussion: Based on the patient's Hx, exam, and Dx evaluation, there is no indication for emergent surgery or inpatient Tx. It is understood by the patient/guardian that if the Sx's persist or worsen they need to return immediately for re-evaluation. I discussed with the patient/guardian in detail that at this point there is no indication for admission to the hospital. It is understood, however, that if the symptoms persist or worsen the patient needs to return immediately for re-evaluation. 09/29 10:20 Order name: CBC with Diff; Complete Time: 12:36 rn 09/29 10:20 Order name: CMP; Complete Time: 12:36 rn 09/29 10:20 Order name: Lipase; Complete Time: 12:36 rn 09/29 10:22 Order name: Urinalysis w/ reflexes; Complete Time: 14:18 rn 09/29 12:21 Order name: CBC Smear Scan; Complete Time: 12:36 EDMS 09/29 10:20 Order name: CT Abd/Pelvis - IV Contrast Only; Complete Time: 12:36 rn 09/29 10:20 Order name: US Abdomen Limited; Complete Time: 12:36 rn 09/29 10:22 Order name: CT Abd/Pelvis - IV Contrast Only rn 09/29 10:20 Order name: IV Saline Lock; Complete Time: 10:29 rn 09/29 10:20 Order name: Labs collected and sent; Complete Time: 10:29 rn Administered Medications: 10:54 Drug: Ondansetron IVP 4 mg IVP once; over 2 minutes Route: IVP; Site: right antecubital;nj1 12:13 Follow up: Response: No adverse reaction; Nausea is decreased nj1 10:56 Drug: morphine IVP or IV 4 mg IVP once over 4 mins Route: IVP; Infused Over: 4 mins; nj1 Site: right antecubital; 12:13 Follow up: Response: No adverse reaction; Pain is decreased nj1 12:19 Drug: Sodium Chloride 0.9% IVPB 1000 ml IVPB once Route: IVPB; Site: right antecubital; nj1 13:25 Follow up: IV Status: Completed infusion; IV Intake: 1000ml nj1 13:38 Drug: Ondansetron IVP 4 mg IVP once; over 2 minutes Route: IVP; Site: right antecubital;nj1 13:40 Drug: morphine IVP or IV 4 mg IVP once over 4 mins Route: IVP; Infused Over: 4 mins; nj1 Site: right antecubital; Disposition Summary: 09/30/23 14:40 Discharge Ordered Notes: Location: Home rn Problem: new rn Symptoms: have improved rn Condition: Stable rn Diagnosis - Abdominal pain, unspecified rn - Nausea with vomiting, unspecified rn Followup: rn - With: Private Physician - When: As needed - Reason: Recheck today's complaints, Re-evaluation by your physician Discharge Instructions: - Discharge Summary Sheet rn - Abdominal Pain, Adult rn - Nausea and Vomiting, Adult rn Forms: - Medication Reconciliation Form rn - Antibiotic international organizer - Prescription Opioid Use rn - Patient Portal Instructions rn - Leadership Thank You Letter rn - Work release form em1 Prescriptions: - ondansetron 4 mg Oral Tablet,disintegrating - take 1 tablet ORAL route every 8 hours As needed; 12 tablet; Refills: 0, rn Product Selection Permitted - Bactrim DS 800-160 mg Oral Tablet - take 1 tablet ORAL route every 12 hours for 10 days; 20 tablet; Refills: 0, rn Product Selection Permitted Signatures: Dispatcher [employer] Liu Tom MD MD rn MicheleBharati RN RN nj1
[2023-09-30 15:39] VITALS: BP 110/99; TEMP 98.2; O2SAT 98
== END 2023-09-30 15:08 | disposition home or self-care (01) ==
LOC: ER 09:37
DX: R11.2 Nausea with vomiting, unspecified (principal); R10.9 Unspecified abdominal pain; F41.9 Anxiety disorder, unspecified; F32.A Depression, unspecified; G89.29 Other chronic pain; F17.290 Nicotine dependence, other tobacco product, uncomplicated; Z88.6 Allergy status to analgesic agent; Z88.8 Allergy status to other drugs, medicaments and biological substances
CPT/HCPCS: 96365; 85025; 36415; 82565; 81003; 83690; 80053; 74177; 76705; 96375; 99284; Q9967; J2405 ×2; J7030

== ENCOUNTER 2024-03-05 15:59 | Emergency (ER) | payer OTHER ==
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
--- NOTE | 2024-03-05 16:43 | RAD REPORT ---
EXAM: Chest Single View HISTORY: COUGH COMPARISON: 04/01/2018 FINDINGS: LUNGS/PLEURA: The lungs are clear. No pleural effusions or pneumothorax. No pulmonary edema. MEDIASTINUM: The mediastinal silhouette is within normal limits. CARDIAC: The cardiac silhouette is within normal limits. UPPER ABDOMEN: No significant abnormality. BONES: No acute fracture. LINES/TUBES/OTHER: N/A IMPRESSION: No evidence of acute cardiopulmonary disease.
[2024-03-05 16:45] LABS: Absolute Basophils 0.1 K/uL (0-0.5); Absolute Eosinophils 0.1 K/uL (0-0.5); Absolute Lymphocytes (CBC) 2.6 K/uL (0.7-4.9); Absolute Monocytes 0.7 K/uL (0.1-1.3); Absolute Neutrophil 3.9 K/uL (1.8-8.0); Basophils % 0.7 % (0-1.3); Hematocrit 46.3 % (39.6-49.0); Hemoglobin 15.3 g/dL (13.6-17.9); Lymphocytes % 35.7 % (15.3-44.8); MCH 29.2 pg (27.0-35.0); MCV 88.6 fL (80-100); MPV 7.2 fL (7.6-11.3); Monocytes % 9.3 % (3.3-12.3); Neutrophils % 53.3 % (41.7-73.7); Platelets 283 thou/uL (152-406); RBC Red Blood Cell Count 5.22 M/uL (4.33-5.43); Red Cell Distribution Width 13.3 % (12.1-15.2)
[2024-03-05] MEDS ORDERED: NA CHLORIDE 0.9% 1,000 ML ONE (16:52)
[2024-03-05 16:53] LABS: PT Prothrombin Time 12.9 SECONDS (9.4-12.5); Protime INR 1.16
[2024-03-05 17:05] LABS: ALT/SGPT 30 U/L (16-61); AST/SGOT 26 U/L (15-37); Albumin 4.3 g/dL (3.4-5.0); Albumin/Globulin Ratio 0.9 (1.1-1.8); Alkaline Phosphatase 92 U/L (45-117); Anion Gap 6.6 mEq/L (5.0-15.0); BUN Blood Urea Nitrogen 14 mg/dL (7-18); Bicarbonate 31 mEq/L (21-32); Bilirubin Total 0.5 mg/dL (0.2-1.0); Globulin 4.7 g/dL (2.3-3.5); Glomerular Filtration Rate 94 ml/min (=/>90); Glucose Level 88 mg/dL (74-106); Magnesium 2.2 mg/dL (1.6-2.4); NT PRO-BNP 24 pg/mL (<125); Potassium 3.6 mEq/L (3.5-5.1); Sodium Level 140 mEq/L (136-145); Troponin High Sensitivity 5.6 pg/mL (<58.9)
[2024-03-05 17:13] LABS: Bilirubin Direct < 0.2 mg/dL (0-0.2); Bilirubin Indirect, Calculated 0.3 mg/dL (0.2-0.8)
[2024-03-05 17:15] LABS: Specific Gravity > 1.030 (1.005-1.030); Sqamous Epithelial None Seen /HPF (None Seen); Urine Bacteria <20 /HPF (<20); Urine Bilirubin NEGATIVE (Negative); Urine Blood Negative (Negative); Urine Clarity Clear (Clear); Urine Color Yellow (Yellow); Urine Culture Reflex Order NOT NEEDED; Urine Glucose NEGATIVE (Negative); Urine Ketones TRACE (Negative); Urine Microscopic Reflex YN ORDER UMIC; Urine Mucus 3+ /HPF (None Seen); Urine Nitrite NEGATIVE (Negative); Urine Protein 1+ (Negative); Urine RBC <5 /HPF (None Seen); Urine Urobilinogen Normal (Normal); Urine WBC <5 /HPF (<5); Urine Yeast (Budding) Trace /HPF (None Seen)
--- NOTE | 2024-03-05 17:48 | ER ---
Nurse's Notes [facility] Name: Jhonny Pompa Age: 43 yrs Sex: Male : 1980 Arrival Date: 03/05/2024 Time: 15:59 Bed 19 Private MD: Diagnosis: Weakness;Essential (primary) hypertension;Dizziness and giddiness Presentation: 03/05 16:09 Chief complaint: Patient states: not feeling good for 2 weeks, started having problems ko1 urinating 4-5 days ago. Coronavirus screen: At this time, the client does not indicate any symptoms associated with coronavirus-19. Ebola Screen: No symptoms or risks identified at this time. 16:09 Method Of Arrival: Ambulatory ko1 16:14 Initial Sepsis Screen: Does the patient meet any 2 criteria? No. Patient's initial ko1 sepsis screen is negative. Does the patient have a suspected source of infection? No. Patient's initial sepsis screen is negative. Risk Assessment: Do you want to hurt yourself or someone else? Patient reports no desire to harm self or others. Onset of symptoms is unknown. 16:14 Acuity: DONNELL 3 ko1 Triage Assessment: 16:14 General: Appears in no apparent distress. Behavior is calm, cooperative, appropriate ko1 for age. Pain: Denies pain. Historical: - Allergies: 16:14 meloxicam; ko1 16:14 Tylenol; ko1 - PMHx: 16:14 Anxiety; chronic leg pain (Unknown); Depression; ko1 - Immunization history:: Adult Immunizations unknown. - Infectious Disease History:: Denies. - Social history:: Smoking status: Patient denies any tobacco usage or history of. Screenin:15 [facility] ED Fall Risk Assessment (Adult) History of falling in the last 3 months, kc6 including since admission No falls in past 3 months (0 pts) Confusion or Disorientation No (0 pts) Intoxicated or Sedated No (0 pts) Impaired Gait No (0 pts) Mobility Assist Device Used No (0 pt) Altered Elimination No (0 pt) Score/Fall Risk Level 0 - 2 = Low Risk Oriented to surroundings, Maintained a safe environment. Abuse screen: Denies threats or abuse. Denies injuries from another. Nutritional screening: No deficits noted. Tuberculosis screening: No symptoms or risk factors identified. Assessment: 17:15 General: Appears in no apparent distress. comfortable, well groomed, well developed, kc6 Behavior is calm, cooperative, appropriate for age, Reports feeling ill for > 3 days, fatigue for >3 days. Neuro: Level of Consciousness is awake, alert, obeys commands, Oriented to person, place, time, situation, Appropriate for age. Cardiovascular: Capillary refill < 3 seconds. Respiratory: Airway is patent Trachea midline Respiratory effort is even, unlabored, Respiratory pattern is regular, symmetrical. GI: No signs and/or symptoms were reported involving the gastrointestinal system. : Urine is clear, Reports inability to void, since x4 days. EENT: No signs and/or symptoms were reported regarding the EENT system. Derm: No signs and/or symptoms reported regarding the dermatologic system. Skin is intact, is healthy with good turgor, Skin is dry, Skin is pale, Skin temperature is warm. Musculoskeletal: No signs and/or symptoms reported regarding the musculoskeletal system. Circulation, motion, and sensation intact. Capillary refill < 3 seconds, Range of motion: intact in all extremities. 18:33 Reassessment: Patient appears in no apparent distress at this time. No changes from kc6 previously documented assessment. Patient and/or family updated on plan of care and expected duration. Pain level reassessed. Patient is alert, oriented x 3, equal unlabored respirations, skin warm/dry/pink. d/c pending completion of IV fluids. Vital Signs: 16:09 BP 137 / 105; Pulse 96; Resp 16; Temp 97.4; Pulse Ox 100% ; ko1 17:15 BP 134 / 83; Pulse 90; Resp 16 S; Pulse Ox 100% on R/A; kc6 ED Course: 16:03 Patient arrived in ED. mr 16:04 Gino Kate MD is Attending Physician. aida 16:14 Triage completed. ko1 16:14 Arm band placed on right wrist. Patient placed in an exam room, Patient notified of ko1 wait time. 16:17 Fany Mix, PAZ is Primary Nurse. kc6 16:35 XRAY Chest (1 view) In Process Unspecified. EDMS 16:46 Basic Metabolic Panel Sent. nh2 16:46 CBC with Diff Sent. nh2 16:46 LFT's Sent. nh2 16:46 Magnesium Sent. nh2 16:46 NT PRO-BNP Sent. nh2 16:46 PT-INR Sent. nh2 16:46 Troponin HS Sent. nh2 16:46 Inserted saline lock: 22 gauge in right antecubital area, using aseptic technique. nh2 Blood collected. Flushed with 10 mL NS. 16:53 EKG done, by ED staff, reviewed by Gino Kate MD. nh2 17:15 Patient has correct armband on for positive identification. Placed in gown. Bed in low kc6 position. Call light in reach. Side rails up X 1. phototypesetting equipment monitor on. Pulse ox on. NIBP on. Door closed. Noise minimized. Lights dimmed. Warm blanket given. Pillow given. 17:15 Patient maintains SpO2 saturation greater than 95% on room air. kc6 17:47 Zaid Pierce DO is Referral Physician. [facility] 19:06 No provider procedures requiring assistance completed. IV discontinued, intact, kc6 bleeding controlled, No redness/swelling at site. Pressure dressing applied. Administered Medications: 17:00 Drug: NS 0.9% IV 1000 ml IV at 1000 ml once; to be given as a bolus over 60 minutes kc6 Route: IV; Rate: 1000 ml; Site: right antecubital; 19:06 Follow up: Response: No adverse reaction; IV Status: Completed infusion; IV Intake: kc6 1000ml 17:54 Not Given (Hemodynamic Parameters): [id number] mg PO once kc6 Medication: 19:07 VIS not applicable for this client. kc6 Intake: 19:06 IV: 1000ml; Total: 1000ml. kc6 Outcome: 17:47 Discharge ordered by . [facility] 19:06 Discharged to home ambulatory, with family, [facility] 19:06 Condition: good 19:06 Discharge instructions given to patient, family, Instructed on discharge instructions, follow up and referral plans. medication usage, Demonstrated understanding of instructions, follow-up care, medications, Prescriptions given X 1, 19:07 Patient left the ED. kc6 Signatures: Dispatcher [employer] EDMS Gino Kate MD MD cha Rivera, Mary, Reg Reg mr MixFany RN RN kc6 Randa Perez RN RN ko1 Dionicio , Ck nh2
--- NOTE | 2024-03-05 17:48 | EDPHYS ---
Physician Documentation [facility] Name: Jhonny Pompa Age: 43 yrs Sex: Male : 1980 Arrival Date: 03/05/2024 Time: 15:59 Bed 19 Private MD: ED Physician Gino Kate HPI: 03/05 16:36 This 43 yrs old Male presents to ER via Ambulatory with complaints of aida Weakness, Dizziness, Doesn't Feel Right, Urinary Problem. 16:36 The patient presents to the emergency department with weakness of the. aida Historical: - Allergies: 16:14 meloxicam; ko1 16:14 Tylenol; ko1 - PMHx: 16:14 Anxiety; chronic leg pain (Unknown); Depression; ko1 - Immunization history:: Adult Immunizations unknown. - Infectious Disease History:: Denies. - Social history:: Smoking status: Patient denies any tobacco usage or history of. ROS: 16:37 Constitutional: Negative for fever, chills, and weight loss, Eyes: Negative for injury, aida pain, redness, and discharge, ENT: Negative for injury, pain, and discharge, Neck: Negative for injury, pain, and swelling, Cardiovascular: Negative for chest pain, palpitations, and edema, Respiratory: Negative for shortness of breath, cough, wheezing, and pleuritic chest pain, Abdomen/GI: Negative for abdominal pain, nausea, vomiting, diarrhea, and constipation, Back: Negative for injury and pain, : Negative for injury, bleeding, discharge, and swelling, MS/Extremity: Negative for injury and deformity, Skin: Negative for injury, rash, and discoloration, Psych: Negative for depression, anxiety, suicide ideation, homicidal ideation, and hallucinations, Allergy/Immunology: Negative for hives, rash, and allergies, Endocrine: Negative for neck swelling, polydipsia, polyuria, polyphagia, and marked weight changes, Hematologic/Lymphatic: Negative for swollen nodes, abnormal bleeding, and unusual bruising, 16:37 Neuro: Positive for weakness, Exam: 16:37 Constitutional: This is a well developed, well nourished patient who is awake, alert, aida and in no acute distress. Head/Face: Normocephalic, atraumatic. Eyes: Pupils equal round and reactive to light, extra-ocular motions intact. Lids and lashes normal. Conjunctiva and sclera are non-icteric and not injected. Cornea within normal limits. Periorbital areas with no swelling, redness, or edema. ENT: Nares patent. No nasal discharge, no septal abnormalities noted. Tympanic membranes are normal and external auditory canals are clear. Oropharynx with no redness, swelling, or masses, exudates, or evidence of obstruction, uvula midline. Mucous membranes moist. Neck: Trachea midline, no thyromegaly or masses palpated, and no cervical lymphadenopathy. Supple, full range of motion without nuchal rigidity, or vertebral point tenderness. No Meningismus. Chest/axilla: Normal chest wall appearance and motion. Nontender with no deformity. No lesions are appreciated. Cardiovascular: Regular rate and rhythm with a normal S1 and S2. No gallops, murmurs, or rubs. Normal PMI, no JVD. No pulse deficits. Respiratory: Lungs have equal breath sounds bilaterally, clear to auscultation and percussion. No rales, rhonchi or wheezes noted. No increased work of breathing, no retractions or nasal flaring. Abdomen/GI: Soft, non-tender, with normal bowel sounds. No distension or tympany. No guarding or rebound. No evidence of tenderness throughout. Back: No spinal tenderness. No costovertebral tenderness. Full range of motion. Skin: Warm, dry with normal turgor. Normal color with no rashes, no lesions, and no evidence of cellulitis. MS/ Extremity: Pulses equal, no cyanosis. Neurovascular intact. Full, normal range of motion., bilateral aka Neuro: Awake and alert, GCS 15, oriented to person, place, time, and situation. Cranial nerves II-XII grossly intact. Motor strength 5/5 in all extremities. Sensory grossly intact. Cerebellar exam normal. Normal gait. Psych: Awake, alert, with orientation to person, place and time. Behavior, mood, and affect are within normal limits. 16:40 Neuro: Exam negative for acute changes, focal neuro deficits, motor deficits, sensory aida deficits, Orientation: is normal, appropriate for stated age, no acute changes, Mentation: is normal, appropriate for stated age, no acute changes, Memory: is normal, appropriate for stated age, no acute changes, Cranial nerves: grossly normal, is grossly normal based on the patient's age, no acute changes, Cerebellar function: is grossly normal, is grossly normal based on the patient's age, no acute changes, Motor: is normal, is grossly normal based on the patient's age, no acute changes, moves all fours, strength is normal, Sensation: is normal, no obvious gross deficits, appropriate no acute changes, Gait: is steady, appropriate for age, Deep tendon reflexes are normal, Babinski testing is normal, seizure activity, is not displayed by the patient, 16:54 ECG was reviewed by the Attending Physician. [facility] Vital Signs: 16:09 BP 137 / 105; Pulse 96; Resp 16; Temp 97.4; Pulse Ox 100% ; ko1 17:15 BP 134 / 83; Pulse 90; Resp 16 S; Pulse Ox 100% on R/A; kc6 MDM: 16:04 Medical Screening Exam initiated [facility] 16:38 Differential Diagnosis altered mental status, sepsis, flu. Data reviewed: vital signs, [facility] nurses notes, lab test result(s), EKG, radiologic studies, plain films. Consideration of Admission/Observation Escalation of care including admission/observation considered. I considered the following discharge prescriptions or medication management in the emergency department Medications were administered in the Emergency Department. See MAR. Independent interpretation of the following test(s) in the Emergency Department EKG: See my EKG interpretation above. Test considered but Not performed: CT: NO CT HEAD. Historians other than the Patient: PT WELL INFORMED. Care significantly affected by the following chronic conditions: Hypertension, ANXIETY, DEPRESSION. Counseling: I had a detailed discussion with the patient and/or guardian regarding the historical points, exam findings, and any diagnostic results supporting the discharge/admit diagnosis, the presence of at least one elevated blood pressure reading (>120/80) during this emergency department visit, lab results, radiology results, the need for outpatient follow up, for definitive care, a family practitioner. 03/05 16:05 Order name: Basic Metabolic Panel; Complete Time: 17:44 [facility] 03/05 16:05 Order name: CBC with Diff; Complete Time: 17:09 [facility] 03/05 16:05 Order name: LFT's; Complete Time: 17:44 [facility] 03/05 16:05 Order name: Magnesium; Complete Time: 17:44 [facility] 03/05 16:05 Order name: NT PRO-BNP; Complete Time: 17:44 [facility] 03/05 16:05 Order name: PT-INR; Complete Time: 17:09 [facility] 03/05 16:05 Order name: Troponin HS; Complete Time: 17:44 [facility] 03/05 16:05 Order name: Urinalysis w/ reflexes; Complete Time: 17:44 [facility] 03/05 16:05 Order name: XRAY Chest (1 view); Complete Time: 17:09 03/05 16:05 Order name: Cardiac monitoring; Complete Time: 16:54 [facility] 03/05 16:05 Order name: EKG - Nurse/Tech; Complete Time: 16:53 [facility] 03/05 16:05 Order name: IV Saline Lock; Complete Time: 16:40 [facility] 03/05 16:05 Order name: Labs collected and sent; Complete Time: 16:41 [facility] 03/05 16:05 Order name: O2 Per Protocol; Complete Time: 16:40 [facility] 03/05 16:05 Order name: O2 Sat Monitoring; Complete Time: 16:40 [facility] EC:54 Rate is 81 beats/min. Rhythm is regular. QRS Robson is Normal. OK interval is normal. QRS aida interval is normal. QT interval is normal. No Q waves. T waves are Normal. No ST changes noted. Clinical impression: Normal ECG and No evidence of ischemia. Interpreted by me. Reviewed by me. Administered Medications: 17:00 Drug: NS 0.9% IV 1000 ml IV at 1000 ml once; to be given as a bolus over 60 minutes kc6 Route: IV; Rate: 1000 ml; Site: right antecubital; 19:06 Follow up: Response: No adverse reaction; IV Status: Completed infusion; IV Intake: kc6 1000ml 17:54 Not Given (Hemodynamic Parameters): mg PO once kc6 Disposition Summary: 03/05/24 17:47 Discharge Ordered Notes: Location: Home aida Problem: new aida Symptoms: have improved aida Condition: Stable aida Diagnosis - Weakness aida - Essential (primary) hypertension aida - Dizziness and giddiness aida Followup: aida - With: Private Physician - When: 2 - 3 days - Reason: Recheck today's complaints, Continuance of care, Re-evaluation by your physician Followup: aida - With: Zaid Pierce, DO - When: 2 - 3 days - Reason: Recheck today's complaints, Re-evaluation by your physician Discharge Instructions: - Discharge Summary Sheet aida - Dizziness aida - Hypertension, Adult aida - Weakness aida - Hypertension, Adult, [id number] aida - How to Take Your Blood Pressure, [id number] aida - Weakness, Hqon-de-Hrzh aida - Aspirin and Your Heart aida - Managing Your Hypertension aida Forms: - Medication Reconciliation Form aida - Antibiotic Education aida - Prescription Opioid Use aida - Patient Portal Instructions aida - Leadership Thank You Letter aida - Work release form kc6 Prescriptions: - Lisinopril 10 mg Oral Tablet - take 1 tablet ORAL route once daily; 20 tablet; Refills: 0, Product Selection aida Permitted Signatures: Dispatcher [employer] EDMS Gino Kate MD MD cha Campbell, Kaitlyn RN RN kc6 Randa Perez, RN RN ko1 Corrections: (The following items were deleted from the chart) 16:05 16:05 Head Brain Wo [id number] ordered. EDMS EDMS
[2024-03-05 19:25] VITALS: TEMP 97.4; O2SAT 100
[2024-03-05 19:28] VITALS: BP 134/83
--- NOTE | 2024-03-09 12:08 | EKG ---
Test Date: 2024-03-05 Test Time: 16:49:36 [employer] Manager: DYLAN MEASUREMENT RESULTS: Intervals: Rate: 81 VT: 134 QRSD: 82 QT: 356 QTc: 413 Babb: P: 59 VT: 134 QRS: 80 T: 69 INTERPRETIVE STATEMENTS: Normal sinus rhythm Normal ECG Compared to ECG 06/21/2023 00:29:34 No significant changes Electronically Signed On 03-09-24 12:05:05 VENEREAL DISEASE CONTROL HEAD by Syd Cabrera
== END 2024-03-05 19:07 | disposition home or self-care (01) ==
LOC: ER 15:59
DX: R53.1 Weakness (principal); I10 Essential (primary) hypertension; R42 Dizziness and giddiness; F41.9 Anxiety disorder, unspecified
CPT/HCPCS: 96361; 85025; 81001; 80048; 36415; 83735; 85610; 80076; 84484; 83880; 71045; 96360; 99285; J7030; 93005